=== PATIENT | female | born 1960 | race Caucasian/White ===

== ENCOUNTER 2021-08-02 07:33 | Day surgery (SDC) | payer OTHER, SELFPAY ==
[2021-07-24 15:09] VITALS: BMI 41.9
--- NOTE | 2021-08-01 11:55 | P.CONAN_ITS ---
Documented by User: Danielle Carvalho NP 08/01/21 11:55 HPI - Anesthesia Eval Consult details Narrative: 61yo F for Colonoscopy [facility] Past Medical History Medical History Arthritis Back pain Smoker Surgical History Surgical History (Updated 07/24/21 @ 15:09 by Stephenie Downey RN) History of total left knee replacement History of total right knee replacement Social History Social History Patient Tobacco Use Status: Current everyday Tobacco user Tobacco use type: Cigarette Cigarette Packs Per Day: 0.25 Cigarettes Per Day: 5.0 Smoked in Last 30 Days: Yes Patient Interested in Nicotine Replacement: Yes Second Hand Smoke Exposure: No Use of substances other than those prescribed or required for medical reasons: No Have you been hit, kicked, punched, or otherwise hurt by someone within the past year? If so, by whom?: No Are you DNR?: No Advance Directives: No Advance Directives Information Provided: No Advance Directives on File: No Recently lost weight without trying: No Nutrition Risks: No Nutritional Risk Patient : No Meds Allergies Allergy/AdvReac Type Severity Reaction Status Date / Time Sulfa (Sulfonamide Allergy Unknown Verified 08/01/21 10:32 Antibiotics) LOBSTER AdvReac Severe VOMITING/DI Uncoded 04/12/20 18:30 ARRHEA Home Medications Medication Instructions Recorded Confirmed Last Taken Type No Known Home Meds 07/24/21 07/24/21 Unknown History Exam Exam Date and Time: August 01, 2021 1155 Height,Weight and Vital Signs: Height 5 ft 6 in Weight 117.934 kg Assessment and Plan Assessment Anesthesia Assessment: Chart Reviewed Documented by User: Ministerio Lopez MD 08/02/21 08:40 [facility] Past Medical History Medical History Arthritis Back pain Smoker Family History Family history of problems with anesthesia: No Surgical History Surgical History (Updated 07/24/21 @ 15:09 by Stephenie Downey RN) History of total left knee replacement History of total right knee replacement History of Problems with Anesthesia: No Social History Social History Patient Tobacco Use Status: Current everyday Tobacco user Tobacco use type: Cigarette Cigarette Packs Per Day: 0.25 Cigarettes Per Day: 5.0 Smoked in Last 30 Days: Yes Patient Interested in Nicotine Replacement: Yes Second Hand Smoke Exposure: No Use of substances other than those prescribed or required for medical reasons: No Have you been hit, kicked, punched, or otherwise hurt by someone within the past year? If so, by whom?: No Are you DNR?: No Advance Directives: No Advance Directives Information Provided: No Advance Directives on File: No Recently lost weight without trying: No Nutrition Risks: No Nutritional Risk Patient : No Meds Allergies Allergy/AdvReac Type Severity Reaction Status Date / Time Sulfa (Sulfonamide Allergy Unknown Verified 08/01/21 10:32 Antibiotics) LOBSTER AdvReac Severe VOMITING/DI Uncoded 04/12/20 18:30 ARRHEA Home Medications Medication Instructions Recorded Confirmed Last Taken Type No Known Home Meds 07/24/21 07/24/21 Unknown History Exam Airway Mallampati Class: II TM Dist: >3cm Neck ROM: Full Loose/Missing/Broken Teeth: No Heart: rrr+s1s2 Lungs: cta b/l Assessment and Plan Assessment Anesthesia Assessment: Anesthesia Plan Discussed Final Anesthetic Review Family History of Problems with Anesthesia: No History of Problems with Anesthesia: No NPO: Yes ASA Class: III Final Preanesthetic Review: No Changes in Pt Med Stat, Meds/Allgs Chart Reviewed, Consent Obtained/Reviewed and Anes Risks/Benef Reviewed Patient Risk: Intermediate Procedure Risk: Low Assessment/Block/Sedation in SS: Assess/Block/Sedation-SS Anesthetic Plan Anesthetic Plan: MAC: and Agree w/ Assess. and Plan Disposition: Standard PACU
[2021-08-02 07:56] VITALS: BP 146/91; PULSE 102; RESP 18; TEMP 36.8; O2SAT 97; BMI 41.9
[2021-08-02] MEDS: Lactated Ringers 1,000 ML 100 ML IVCONT (08:18)
[2021-08-02 09:56] VITALS: BP 113/63; PULSE 77; RESP 16; TEMP 36.6; O2SAT 97
--- NOTE | 2021-08-02 09:59 | P.BOP_ITS ---
Brief Operative Note Date of Service: 08/02/21 Pre-op diagnosis: Screening Post-op diagnosis: other (Colon polyps) Procedure: Colonoscopy to the cecum and TI with hot snare polypectomy x 2 Surgeon: Amarjit Roa Anesthesia: MAC Was an Control Systems Drafting Officer used for this Procedure?: No Estimated blood loss (mL): 0 Pathology: other (A. Polyp at 50cm B. Polyp at 20cm) Condition: stable Disposition: PACU
[2021-08-02 10:11] VITALS: BP 145/88; PULSE 71; RESP 16; TEMP 36.6; O2SAT 97
--- NOTE | 2021-08-02 11:12 | OP_ITS ---
SURGEON: Amarjit Roa MD INDICATIONS: The patient presents for evaluation of colorectal cancer screening. Full consent has been obtained from her for this, including risks of bleeding and perforation. PREOPERATIVE DIAGNOSIS: Colorectal cancer screening. POSTOPERATIVE DIAGNOSIS: PROCEDURE PERFORMED: Colonoscopy to cecum and terminal ileum with hot snare polypectomy. ESTIMATED BLOOD LOSS: COMPLICATIONS: ANESTHESIA: Monitored anesthesia care. ASSISTANTS: SPECIMENS: POSTOPERATIVE DIAGNOSES: Colorectal cancer screening, colon polyps, diverticulosis, and internal hemorrhoids. DESCRIPTION OF PROCEDURE: The patient was placed in the left lateral decubitus position. The digital rectal exam revealed no abnormalities. The Olympus video pediatric colonoscope was entered into the rectum and advanced easily to the cecum. Once in the cecum, I did identify normal-appearing cecal pouch with appendiceal orifice and a normal-appearing ileocecal valve. The terminal ileum was cannulated and appeared normal. The scope was withdrawn back in the colon. The entire cecum and ileocecal valve appeared normal. The scope was slowly withdrawn assessing all mucosal surfaces carefully. Preparation was excellent. At 50 cm and at 20 cm were flat approximately 6 to 8 mm probable adenomatous polyps which were each removed with hot snare polypectomy and recovered by suction. The polypectomy sites appeared clean, without any sign of residual polyp nor bleeding. I did not visualize any other polyps, colitis, nor angiodysplasia. There was a mild amount of sigmoid diverticulosis. In the rectum, scope was retroflexed visualizing small internal hemorrhoids, but no other pathology. The rectal mucosa appeared normal. Scope was straightened and withdrawn from the patient. She tolerated the procedure well and was returned to the recovery area in stable condition. IMPRESSION: 1. Colon polyps, status post hot snare polypectomy. 2. Diverticulosis. 3. Internal hemorrhoids. PLAN: The results of the pathology will be checked. If these are tubular adenomas, I would recommend a followup colonoscopy in 5 years. She was advised not to use any aspirin or NSAIDs for 1 week. MD ALL Anderson/YAMILE / [id number] MTDBernarda
== END 2021-08-02 11:13 | disposition home or self-care (01) ==
PROVIDERS: Visit Provider Internal Medicine
PROC: 0DJD8ZZ Inspection of Lower Intestinal Tract, Via Natural or Artificial Opening Endoscopic (ICD-10-PCS; CPT 45378; principal; 2021-08-02 09:20)
DX: Z12.11 Encounter for screening for malignant neoplasm of colon (principal); D12.5 Benign neoplasm of sigmoid colon; K57.30 Diverticulosis of large intestine without perforation or abscess without bleeding; K64.8 Other hemorrhoids; F17.210 Nicotine dependence, cigarettes, uncomplicated; Z96.653 Presence of artificial knee joint, bilateral
CPT/HCPCS: 45385; 88305; J3010

== ENCOUNTER 2023-03-13 13:30 | Emergency (ER) | payer OTHER, SELFPAY ==
--- NOTE | 2023-03-13 13:40 | ED_ITS ---
HPI - General Adult General Chief complaint: General Medical Stated complaint: exposure to bats Time Seen by Provider: 03/13/23 14:42 Source: patient, RN notes reviewed and old records reviewed Mode of arrival: ambulatory History of Present Illness HPI narrative: 63-year-old female with no significant past medical history presenting to the ED complaining of bat exposure. Has found multiple bats in household over the past few days. Denies known bite. Tetanus up-to-date. Denies other complaints at present Related Data Home Medications Medication Instructions Recorded Confirmed No Known Home Meds 07/24/21 07/24/21 Allergies Allergy/AdvReac Type Severity Reaction Status Date / Time Sulfa (Sulfonamide Allergy Unknown Verified 03/13/23 13:41 Antibiotics) LOBSTER AdvReac Severe VOMITING/DI Uncoded 03/13/23 13:41 ARRHEA Review of Systems Review of Systems: Constitutional: No Fever, No Chills ENT/Mouth: No Ear Pain, No Nasal Congestion, No sore throat, No Rhinorrhea, No Swallowing Difficulty Cardiovascular: No Chest Pain, No SOB Respiratory: No Cough Gastrointestinal: No Nausea, No Vomiting, No Diarrhea, No Constipation, No Abdominal pain Musculoskeletal: No joint pain, No Myalgias, No Joint Swelling Skin: No Skin Lesions, No rash Neuro: No Weakness Yes all other systems are reviewed and are negative Constitutional: Constitutional: Reports as per [facility] Past Medical History Attestation statement: The following information was validated with the patient. Source: old records reviewed Medical History Arthritis Back pain Smoker Surgical History History of total left knee replacement History of total right knee replacement Social History Social History Patient Tobacco Use Status: Current everyday Tobacco user Tobacco use type: Cigarette Cigarette Packs Per Day: 0.25 Cigarettes Per Day: 5.0 Second Hand Smoke Exposure: No Physical Exam ED Vital Signs: Vital Signs - 24 hr 03/13/23 13:41 Temperature 98 F Pulse Rate 100 Respiratory Rate 19 Blood Pressure 153/98 H Pulse Oximetry 100 Oxygen Delivery Method Room Air BMI result Body Mass Index 41.3 Const General: cooperative, healthy appearing and no acute distress Orientation/consciousness: patient oriented x3 Limitations: no limitations HENMT Head: Yes normal to inspection and Yes atraumatic Ears: hearing grossly normal bilaterally General nose exam: Normal external nose present Face and sinus: Yes normal facial exam Eyes General: appearance normal, both eyes and all related structures EOM: EOMs intact bilaterally Neck Neck: Yes normal visual inspection and Yes no meningeal signs Resp Effort & Inspection: normal respiratory effort and no respiratory distress Cardio Rate: regular rate Skin Rashes: no rashes Wounds: no wounds Neuro General: patient oriented x3, tone normal and no meningeal signs Cranial nerves: Yes CN's II-XII intact bilaterally Gait exam (Neuro): Normal gait present Extrem General: Yes normal to inspection Course Course Course Narrative: RME performed by Sayda Mclaughlin PA-C. Patient is a 63 year old assigned female at presenting to the emergency department with bat exposure. Rabies ordered. Patient placed back in the waiting room pending room availability. Medications Administered Discontinued Medications Generic Name Dose Route Start Last Admin Trade Name Freq PRN Reason Stop Dose Admin Rabies Immune Globulin 2,320 unit 03/13/23 13:44 03/13/23 15:03 Rabies Immune Globulin/Pf 900 Unit/3 Ml Vial 20 unit/kg (2320 unit) 03/13/23 13:45 2,320 unit IM Administration ONCE ONE Rabies Vaccine Human Diploid Cell 1 ml 03/13/23 13:44 03/13/23 15:03 Rabies Vaccine, Human Diploid (Imovax) 1 Ml Vial IM 03/13/23 13:45 1 ml .ONCE ONE Administration Medical Decision Making Medical Decision Making MDM Narrative: 63-year-old female with no significant past medical history presenting to the ED complaining of bat exposure. On exam vital signs stable, NAD, nontoxic appearing, patient with known fat exposure will give rabies immune globulin and vaccine. Up-to-date on tetanus. Patient given information for short-stay velasco rgery follow-up Results discussed with patient including worrisome signs and symptoms and strict return precautions, and when to return to the emergency department. They verbalized understanding and feel safe for discharge at this time. Differential Diagnosis Differential Diagnoses: The differential diagnosis associated with the prese ntation includes As above External Record Review External record reviewed: Inpatient record, Office record, Outpatient record, Prior outpatient labs, Prior outpatient radiology, Primary care record and Outside ED record Tests considered The following testing was considered but not selected: As above Prescription Management I considered prescription management with: Antiviral and Antibiotic Discharge Plan Discharge Clinical Impression: Exposure to bat without known bite Patient Disposition: Home, Self-Care Instructions: Rabies (ED) Additional Instructions: Your given the rabies vaccine and immunoglobulin today You need to follow-up with short-stay surgery for the remaining doses of her vaccine on the , & 03/30 Follow-up on Thursday at 15:00 for your injection Please follow-up with her doctor Prescriptions: No Action No Known Home Meds Discharge Date/Time: 03/13/23 15:30
[2023-03-13 13:41] VITALS: BP 153/98; PULSE 100; RESP 19; TEMP 36.6; O2SAT 100; BMI 41.3
[2023-03-13] MEDS: Rabies Vaccine, Human Diploid (Imovax) 1 ML VIAL IM (15:03)
[2023-03-13] MEDS: Rabies Immune Globulin/PF 900 UNIT/3 ML VIAL 2320 UNIT IM (15:03)
== END 2023-03-13 15:30 | disposition home or self-care (01) ==
PROVIDERS: Emergency Provider Emergency Medicine Emergency Medical Services
DX: Z20.3 Contact with and (suspected) exposure to rabies (principal)
CPT/HCPCS: 90375; 90471; 90675; 96372; 99283; 99284

== ENCOUNTER 2023-03-16 14:53 | Outpatient (REF) | payer OTHER, SELFPAY | END 2023-03-16 14:54 | disposition home or self-care (01) | LOC: HO.MDS 14:53 | PROVIDERS: Visit Provider Physician Assistant | DX: Z20.3 Contact with and (suspected) exposure to rabies (principal) | CPT/HCPCS: 90471; 90675 ==

== ENCOUNTER 2024-12-23 09:39 | Outpatient (REF) | payer OTHER, SELFPAY ==
--- NOTE | ~2024-12-23 | XR_ITS ---
CLINICAL HISTORY: M25.511 - Pain in right shoulder 8 view bilateral shoulder Comparison: None Findings: Bones intact. No dislocations. No significant arthritic change. No erosions. No radiopaque foreign body. IMPRESSION: 1. No acute findings This document has been electronically signed by: Christiano Veloz MD on 12/24/2024 10:42:43
== END 2024-12-23 09:40 | disposition home or self-care (01) ==
LOC: HO.XRAY 09:39
PROVIDERS: Visit Provider Student in an Organized Health Care Education/Training Program
DX: M25.511 Pain in right shoulder (principal); M25.512 Pain in left shoulder
CPT/HCPCS: 73030

== ENCOUNTER 2024-12-23 09:39 | Outpatient (AMB) | payer OTHER, SELFPAY ==
--- OUTSIDE RECORDS SUMMARY | 2024-12-23 10:03 | XMS_ITS | Patient Health Record ---
Author Organization [facility] Address [address] [place] [address] Care Team Providers Care Plant Security Guard Name Role Phone Jenny Silva Primary Care Provider Amarjit Snow Unavailable [phone] Allergies Allergen (clinical drug ingredient) Drug/Non Drug Allergy documented on EMR Reaction Allergy Type Onset Date Status Substance with sulfonamide structure and antibacterial mechanism of action (substance) Sulfa Antibiotics Unknown Drug Allergy Active Reason For Referral No Information Immunizations Vaccine Route Administration Date Status Comme nts Influenza Unknown 04/26/2021 Administered Social History Tobacco Use: Social History Observation Description Date Details (start date - stop date) Current Smoker NA - NA Tobacco Use/Smoking Question Answer Notes Patient is a current smoker How often do you smoke cigarettes? every day How many cigarettes a day do you smoke? 6-10 Alcohol Screen Question Answer Notes Did you have a drink contain ing alcohol in the past year? Yes How often did you have a dri nk containing alcohol in the past year? 4 or more times a week (4 points) How many drinks did you have on a typical day when you were drinking in the past year? 3 or 4 drinks (1 point) How often did you have 6 or more drinks on one occasion in the past year? Never (0 point) Points 5 Interpretation Positive Section Notes: Smoker 4-6 cigs QD; drinks S cotch 2 drinks 4-5 times a day Problems Problem Type SNOMED Code ICD Code Onset Dates Problem Status W/U Status Risk Notes Problem 867326379 Encounter for screening for malignant neoplasm of colon (Z12.11) Active confirmed Problem [id number] Preprocedural examination (Z01.818) Active confirmed Problem Diverticulosis of colon (130212595) Diverticulosis of colon (K57.30) Active confirmed Plan Of Treatment Pending Test Test Name Order Date Pathology 08/02/2021 Future Test Test Name Order Date COLONOSCOPY 07/04/2021 Insurance Providers Payer Name Payer Address Payer Phone Subscriber Number Group Number Insured Name Patient Relationship to Insured Coverage Start Date Coverage End Date [facility] [address] [facility] [place] [phone] [id number] HOLLY BEAULIEU Self - patient is the insured Medical (General) History Medical History History ICD Code Denies LA,DM,CVA,Lung disease,renal dise ase Surgical History Surgery Date(Month/Year) 2 knee replacements 2014
--- NOTE | 2024-12-23 10:26 | A.OFFVIS_ITS ---
Vital Signs 12/23/24 10:44 Height 5 ft 6 in Weight 279 lb 1.683 oz BMI 45.0 BP 150/100 H Blood Pressure Location Rt brachial Position Sitting Pulse 99 Pulse Source Pulse Oximeter Pulse Oximetry (%) 97 Oxygen Delivery Method Room Air Intake Visit Reasons: Diffuse pain/urgent referral req approved Intake Note: Patient presents for diffuse pain. Patient stated she feels pain all over. The back of my neck, both shoulders, lower back, both wrist, both hands/fingers, both knees, both ankles and feet/toes. I been feeling pain for 10 years or more. Over the counter med are short term relieve. I take Cyclobenzaprine 10 mg as needed and it works. Allergies Sulfa (Sulfonamide Antibiotics) Allergy (Verified 12/23/24 10:37) Unknown LOBSTER Adverse Reaction (Severe, Uncoded 03/13/23 13:41) VOMITING/DIARRHEA Medication List - Last Reconciled 12/23/24 by Naomi Aguilera MD cyclobenzaprine 10 mg PO TID ergocalciferol (vitamin D2) (Vitamin D2) 1,250 mcg PO QWEEK HPI Comments Details: Patient is a 64-year-old female with hyperlipidemia, white coat hypertension, and bilateral knee OA s/p bilateral knee replacement in 2016 here today for evaluation of myalgias in the setting of significantly elevated CRP States that she was placed on a statin about 1.5 years ago, since starting the statin she started to experience excrutiating muscle pain, particularly in her shoulders and hips. The statin dose frequency was reduced to every 2 days then every 3 days which improved the pain but still present especially when she started taking the statin again. So the medication was discontinued. The muscle pains improved after about 2 months off the medication. In May/June she was being treated for a tooth infection and was placed on several courses of antibiotics including amoxicillin, ?cefalexin (patient states that medication started with a c) and finally augmentin before having to get a second root canal. During this time she started to notice return of her muscle pain. Denies overt muscle weakness but states that the muscle pain makes doing things more difficult. No changes in her vision. PFSH Medical History Arthritis Back pain Smoker Surgical History History of total left knee replacement History of total right knee replacement Family History (Updated 12/23/24 @ 10:42 by SADIQ Sanchez) Mother Stroke Hypertension Father History of heart attack Hypertension Maternal Aunt Thyroid disease Social History Household Members: Significant Other Housing: House Alcohol intake: current Alcohol intake frequency: a few times a week Comment: Often Patient Tobacco Use Status: Current everyday Tobacco user Tobacco use type: Cigarette Cigarette Packs Per Day: 0.25 Cigarettes Per Day: 5.0 Second Hand Smoke Exposure: No Review of Systems Const Details: Review of Systems Constitutional: Denies fever, chills, weight loss ENT: Denies vision changes, eye pain or eye redness, dental caries, dry mouth GI: Denies nausea, vomiting, diarrhea, abdominal pain, change in BM Pulm: Denies SOB, HELLER, hemoptysis, wheezing Cards: Denies chest pain, palpitations Skin: Denies Raynaud's, rash, nail changes, photosensitivity, LANDSCAPE ARCHITECT: Denies headaches, weakness, paresthesias, recurrent falls MSK: as per HPI All other systems reviewed and are unremarkable except noted above Physical Exam Vital Signs: Last Vital Signs Pulse 99 12/23/24 10:44 BP 150/100 H 12/23/24 10:44 Pulse Ox 97 12/23/24 10:44 Oxygen Delivery Method Room Air 12/23/24 10:44 BMI result Body Mass Index 45.0 Vital signs reviewed Physical Examination CONSTITUITIONAL Patient alert and cooperative. Well appearing and in no apparent painful distress. Obese HEENT Conjunctiva and sclera clear. ?Pupils equal round and reactive to light. ?No lymphadenopathy. ? CHEST/RESPIRATORY SYSTEM Normal respiratory effort and able to speak in complete sentences. ?Clear to auscultation bilaterally. ?No crackles, rales, rhonchi, wheezes heard. CARDIAC SYSTEM Regular rate and rhythm. ?S1 and S2 heard no murmurs. ?Radial pulses intact bilaterally MSK Hands: ?Able to make a fist. No synovitis noted to the MCPs, PIPs or DIPs. ?No tenderness to palpation of these joints. No deformities noted. ? Wrists: ?Full range of motion at the wrists without pain. ?No tenderness to palpation or synovitis noted to the wrists. Elbows: Full range of motion without pain. No tenderness, weakness, swelling, increased warmth or erythema. Shoulders: Full range of active range of motion without pain. No tenderness, weakness, swelling, increased warmth or erythema. Knees: ?Full range of motion. ?No tenderness, swelling, increased warmth or erythema.?No effusion or crepitations Ankles: Full range of motion. ?No tenderness, swelling, increased warmth or erythema.? Feet: ?Negative squeeze test. ?No tenderness to palpation or swelling of the MTPs. Tender points:?No tenderness to palpation of the bilateral trapezius, supraspinatus, greater trochanters, anterior costochondral junctions, bilateral gluteal areas, bilateral suboccipital muscle insertions Right Left Neck Shoulder abduction 4+ 4+ Shoulder adduction 5 5 Elbow flexion 5 5 Elbow extension 5 5 Land Surveying Party Chief strength 5 5 Hip flexion 5 5 Knee extension 5 5 Knee flexion 5 5 Ankle dorsiflexion 5 5 Ankle plantarflexion 5 5 SKIN Skin intact without rashes. Results Reviewed Results Reviewed: CRP 10 on records from PCP Assessment & Plan Assessment & Plan (1) Muscle pain: Code(s): M79.10 - Myalgia, unspecified site Plan: #Myalgias Patient is a 64-year-old female without significant past medical history who presents for evaluation of myalgias says it severely elevated CRP. History and exam is not consistent with any autoimmune pathology. Her history of having myalgias on statins and no return of myalgias after antibiotics is concerning for myopathies. We will check CK, aldolase and inflammatory markers. Re- evaluate in 2 weeks with blood work Plan - Check CRP, ESR, CK, Aldolase, CBC, CMP, MSA panel extended, T spot, Hepatitis panel - XR Bilateral shoudlers - RTC 2 weeks Plan I spent 45 minutes reviewing the record and labs, taking a history, examining the patient, discussing the treatment plan, ordering diagnostic work up and documenting in the medical record Orders: Orders C Reactive Protein Today M79.10 - Myalgia, unspecified site Creatine Kinase Total Today M79.10 - Myalgia, unspecified site Aldolase Today M79.10 - Myalgia, unspecified site Erythrocyte Sedimentation Rate Today M79.10 - Myalgia, unspecified site Hepatitis A,B,C Profile Today M79.10 - Myalgia, unspecified site T Spot TB Today M79.10 - Myalgia, unspecified site Complete Blood Count Auto Diff Today M79.10 - Myalgia, unspecified site Comprehensive Met. Panel Today M79.10 - Myalgia, unspecified site MSA Panel Extended Today M79.10 - Myalgia, unspecified site XR shoulder RT min 2V Today M25.511 - Pain in right shoulder, M25.512 - Pain in left shoulder Coding Level of Care Code New Pt Level 4 (59777) Diagnoses Muscle pain M79.10
[2024-12-23 10:44] VITALS: BP 150/100; PULSE 99; O2SAT 97; BMI 45.0
== END 2024-12-23 11:20 | disposition home or self-care (01) ==
LOC: HO.RHE 09:40
PROVIDERS: Visit Provider Student in an Organized Health Care Education/Training Program
DX: M79.10 Myalgia, unspecified site (principal)
CPT/HCPCS: 99204

== ENCOUNTER 2024-12-23 11:28 | Outpatient (REF) | payer OTHER, SELFPAY ==
[2024-12-23 13:17] LABS: MANUAL DIFF FLAG NO
[2024-12-23 13:25] LABS: Basophils Absolute Auto 0.1 X10*3/uL (0.0-0.2); Basophils Percent Auto 0.6 % (0-2); Eosinophils Absolute Auto 0.1 X10*3/uL (0.0-0.4); Hematocrit 46.6 % (37.0-47.0); Imm Gran Abs Auto 0.03 X10*3/uL (0.00-0.03); Imm Gran Pct Auto 0.3 % (0.0-0.4); Lymphocytes Absolute Auto 2.8 X10*3/uL (1.2-4.9); Lymphocytes Percent Auto 26.1 % (20-40); Mean Corpuscular HGB Conc 32.2 g/dl (31.0-35.0); Mean Corpuscular Hemoglobin 28.4 pg (27.0-33.0); Mean Corpuscular Volume 88.3 fL (80.0-98.0); Mean Platelet Volume 11.3 fL (9.4-12.3); Monocytes Absolute Auto 0.7 X10*3/uL (0.1-1.2); Monocytes Percent Auto 6.9 % (2-11); Neutrophils Absolute Auto 6.9 x10*3/uL (2.0-8.3); Neutrophils Percent Auto 65.1 % (45-73); Platelet Count 372 X10*3/uL (160-400); Red Blood Count 5.28 X10*6/uL (4.20-5.50); Red Cell Distribution Width 14.6 % (11.0-16.0); White Blood Count 10.6 X10*3/uL (4.8-10.8)
[2024-12-23 14:01] LABS: Erythrocyte Sedimentation Rate 27 MM/HR (0-20)
[2024-12-23 14:04] LABS: Alanine Aminotransferase 21 U/L (0-31); Albumin Level 3.9 g/dL (3.5-5.0); Alkaline Phosphatase 117 U/L (39-117); Anion Gap 14 (12-20); Aspartate Amino Transferase 26 U/L (5-31); Bilirubin Total 0.4 mg/dL (0.0-1.0); Blood Urea Nitrogen 13 mg/dL (9-16); Calcium 8.9 mg/dL (8.4-10.2); Carbon Dioxide 23 mmol/L (22-29); Chloride 108 mmol/L (96-108); Estimated Glomerular Filt Rate > 60; Glucose Random 87 mg/dL (60-115); Sodium 141 mmol/L (135-145); Total Protein 7.9 g/dL (6.5-8.0)
[2024-12-25 03:31] LABS: HBc Num1 0.21 S/CO (0.00-0.79); HBsAGNum1 0.32 S/CO (0.00-0.99); Hepatitis A Antibody IgM 0.17 Index (0-0.79); Hepatitis B Core Antibody Nonreactive (Nonreactive); Hepatitis B Surface Antigen Negative (Negative); ~HepC Num1 0.17 S/CO (0.00-0.79); ~Hepatitis A Antibody IgM Nonreactive (Nonreactive); ~Hepatitis B Surface Antibody NONREACTIVE (Nonreactive); ~Hepatitis C Antibody Nonreactive (Nonreactive)
[2024-12-26 12:34] LABS: TS Negative Control Passed; TS Panel A 0; TS Panel B 0; TS Positive Control Passed; TSpotTB Negative (Negative)
[2024-12-28 06:24] LABS: Aldolase 5.7 U/L (<=8.1)
[2025-01-03 15:53] LABS: Ej Ab <11 SI (<11); Jo-1 Ab <11 SI (<11); MDA5 Ab <11 SI (<11); Mi-2 alpha Ab <11 SI (<11); Mi-2 beta Ab <11 SI (<11); NXP-2 (MJ) Ab <11 SI (<11); Oj Ab <11 SI (<11); Pl-12 Ab <11 SI (<11); Pl-7 Ab <11 SI (<11); SRP Ab <11 SI (<11); TIF1 gamma Ab <11 SI (<11)
== END 2024-12-23 11:29 | disposition home or self-care (01) ==
LOC: HO.10HDL 11:28
PROVIDERS: Visit Provider Student in an Organized Health Care Education/Training Program
DX: M79.10 Myalgia, unspecified site (principal)
CPT/HCPCS: 36415; 80053; 82085; 82550; 83516; 83520; 84182; 85025; 85652; 86140; 86235; 86481; 86704; 86706; 86709; 86803; 87340

== ENCOUNTER → 2024-12-23 11:55 | Outpatient (BNV) | payer OTHER, SELFPAY | PROVIDERS: Visit Provider Specialist | DX: M25.511 Pain in right shoulder (principal) | CPT/HCPCS: 73030 ==

== ENCOUNTER → 2025-01-04 07:39 | Outpatient (BNVA) | payer OTHER, SELFPAY | PROVIDERS: Visit Provider Student in an Organized Health Care Education/Training Program | DX: M79.10 Myalgia, unspecified site (principal); M25.511 Pain in right shoulder; M25.512 Pain in left shoulder ==

== ENCOUNTER 2025-01-20 10:11 | Outpatient (AMB) | payer OTHER, SELFPAY ==
--- NOTE | 2025-01-20 10:14 | MHC.OFFVIS ---
Vital Signs 01/20/25 10:23 Height 5 ft 6 in Weight 275 lb 2.19 oz BMI 44.4 BP 160/104 H Blood Pressure Location Rt brachial Position Sitting Pulse 110 H Pulse Source Pulse Oximeter Pulse Oximetry (%) 98 Oxygen Delivery Method Room Air Intake Visit Reasons: diffuse pain/ MD req 2week f/u Intake Note: Patient presents for diffuse pain follow up. Allergies Sulfa (Sulfonamide Antibiotics) Allergy (Verified 01/20/25 10:22) Unknown LOBSTER Adverse Reaction (Severe, Uncoded 03/13/23 13:41) VOMITING/DIARRHEA Medication List - Last Reconciled 01/20/25 by Naomi Aguilera MD cyclobenzaprine 10 mg PO TID ergocalciferol (vitamin D2) (Vitamin D2) 1,250 mcg PO QWEEK HPI Comments Details: Patient is a 64-year-old female with hyperlipidemia, white coat hypertension, and bilateral knee OA s/p bilateral knee replacement in 2016 here today for evaluation of myalgias in the setting of significantly elevated CRP Interval History: Patient last seen 12/23/24 with me. Visit summary: - establishing care for myalgias in the setting of elevated CRP Today - no change - main areas of pain are shoulders and lower legs - Does not want to drive to [place] Rheumatologic History: Initial History: Patient is a 64-year-old female with hyperlipidemia, white coat hypertension, and bilateral knee OA s/p bilateral knee replacement in 2016 here today for evaluation of myalgias in the setting of significantly elevated CRP States that she was placed on a statin about 1.5 years ago, since starting the statin she started to experience excrutiating muscle pain, particularly in her shoulders and hips. The statin dose frequency was reduced to every 2 days then every 3 days which improved the pain but still present especially when she started taking the statin again. So the medication was discontinued. The muscle pains improved after about 2 months off the medication. In May/June she was being treated for a tooth infection and was placed on several courses of antibiotics including amoxicillin, ?cefalexin (patient states that medication started with a c) and finally augmentin before having to get a second root canal. During this time she started to notice return of her muscle pain. Denies overt muscle weakness but states that the muscle pain makes doing things more difficult. No changes in her vision. Current Rheumatology Medication(s): [facility] Medical History Arthritis Back pain Smoker Surgical History History of total left knee replacement History of total right knee replacement Family History Mother Stroke Hypertension Father History of heart attack Hypertension Maternal Aunt Thyroid disease Social History Household Members: Significant Other Housing: House Alcohol intake: current Alcohol intake frequency: a few times a week Comment: Often Patient Tobacco Use Status: Current everyday Tobacco user Tobacco use type: Cigarette Cigarette Packs Per Day: 0.25 Cigarettes Per Day: 5.0 Second Hand Smoke Exposure: No Review of Systems Const Details: Review of Systems Constitutional: Denies fever, chills, weight loss ENT: Denies vision changes, eye pain or eye redness, dental caries, dry mouth GI: Denies nausea, vomiting, diarrhea, abdominal pain, change in BM Pulm: Denies SOB, HELLER, hemoptysis, wheezing Cards: Denies chest pain, palpitations Skin: Denies Raynaud's, rash, nail changes, photosensitivity, CASTER OPERATOR: Denies headaches, weakness, paresthesias, recurrent falls MSK: as per HPI All other systems reviewed and are unremarkable except noted above Physical Exam Vital Signs: Last Vital Signs Pulse 110 H 01/20/25 10:23 BP 160/104 H 01/20/25 10:23 Pulse Ox 98 01/20/25 10:23 Oxygen Delivery Method Room Air 01/20/25 10:23 BMI result Body Mass Index 44.4 Vital signs reviewed Physical Examination CONSTITUITIONAL Patient alert and cooperative. Well appearing and in no apparent painful distress. Obese HEENT Conjunctiva and sclera clear. ?Pupils equal round and reactive to light. ?No lymphadenopathy. ? CHEST/RESPIRATORY SYSTEM Normal respiratory effort and able to speak in complete sentences. ?Clear to auscultation bilaterally. ?No crackles, rales, rhonchi, wheezes heard. CARDIAC SYSTEM Regular rate and rhythm. ?S1 and S2 heard no murmurs. ?Radial pulses intact bilaterally MSK Hands: ?Able to make a fist. No synovitis noted to the MCPs, PIPs or DIPs. ?No tenderness to palpation of these joints. No deformities noted. ? Wrists: ?Full range of motion at the wrists without pain. ?No tenderness to palpation or synovitis noted to the wrists. Elbows: Full range of motion without pain. No tenderness, weakness, swelling, increased warmth or erythema. Shoulders: Full range of active range of motion without pain. No tenderness, weakness, swelling, increased warmth or erythema. Knees: ?Full range of motion. ?No tenderness, swelling, increased warmth or erythema.?No effusion or crepitations Ankles: Full range of motion. ?No tenderness, swelling, increased warmth or erythema.? Feet: ?Negative squeeze test. ?No tenderness to palpation or swelling of the MTPs. Tender points:?Tenderness to palpation of the bilateral trapezius, supraspinatus, greater trochanters, anterior costochondral junctions, bilateral gluteal areas, bilateral suboccipital muscle insertions Right Left Neck Shoulder abduction 4+ 4+ Shoulder adduction 5 5 Elbow flexion 5 5 Elbow extension 5 5 Pole Setter strength 5 5 Hip flexion 5 5 Knee extension 5 5 Knee flexion 5 5 Ankle dorsiflexion 5 5 Ankle plantarflexion 5 5 SKIN Skin intact without rashes. Results Reviewed Results Reviewed: Laboratory Tests 12/23/24 11:30 WBC 10.6 RBC 5.28 Hgb 15.0 Hct 46.6 Plt Count 372 ESR 27 H Sodium 141 Potassium 4.0 Chloride 108 Carbon Dioxide 23 BUN 13 Creatinine 0.78 Calcium 8.9 Total Bilirubin 0.4 AST 26 ALT 21 Alkaline Phosphatase 117 Total Creatine Kinase 47 C-Reactive Protein 1.70 H Total Protein 7.9 Albumin 3.9 Aldolase 5.7 Infectious serologies 12/23/24 11:30 Hepatitis A IgM Ab Nonreactive Hep Bs Antigen Negative Hep Bs Antibody NONREACTIVE Hep B Core Total Ab Nonreactive Hepatitis C Ab (EIA) Nonreactive TB Test (T-Spot) Com Negative Extended myositis panel 12/23/24 11:30 YARA-1 Antibody <11 EJ Antibody <11 OJ Antibody <11 Mi-2-Alpha Ab <11 Mi-2-Beta Ab <11 NXP-2 Ab <11 PL-7 Antibody <11 PL-12 Antibody <11 SRP Ab <11 MDA5 Ab <11 Myos P155/140 TIF1-g Ab <11 HMGCR IgG Antibody TNP NT5C1A IgG Antibody TNP XR Bilateral shoulders 11/2024 Findings: Bones intact. No dislocations. No significant arthritic change. No erosions. No radiopaque foreign body. IMPRESSION: 1. No acute findings Assessment & Plan Assessment & Plan (1) Muscle pain: Code(s): M79.10 - Myalgia, unspecified site Plan: #Myalgias Patient is a 64-year-old female without significant past medical history who presents for evaluation of myalgias in the setting of severely elevated CRP. History and exam is not consistent with any autoimmune pathology. Her history of having myalgias on statins and no return of myalgias after antibiotics is concerning for myopathies but CK and aldolase normal. Myositis panel normal as well. She does have some fibromyalgia tender points on exam. Will check HMGCR Ab, RF and CCP. If negative patient likely with fibromyalgia Patient does not want to drive to [place] and we will go back to her primary and ask for a referral to a environmental services floor tech in the [facility]. Plan - Check HMGCR ab, RF and CCP - Contact patient with results Plan I spent 30 minutes reviewing the record and labs, taking a history, examining the patient, discussing the treatment plan, ordering diagnostic work up and documenting in the medical record Orders: Orders HMGCR IgG Today M79.10 - Myalgia, unspecified site Cyclic Citrullinated Peptide Today M79.10 - Myalgia, unspecified site Other Ref Test - Misc Today M79.10 - Myalgia, unspecified site Rheumatoid Factor Today M79.10 - Myalgia, unspecified site Coding Level of Care Code Est Pt Level 4 (36256) Diagnoses Muscle pain M79.10
[2025-01-20 10:23] VITALS: BP 160/104; PULSE 110; O2SAT 98; BMI 44.4
--- OUTSIDE RECORDS SUMMARY | 2025-01-20 10:51 | XMS_ITS | Patient Health Record ---
Author Organization [facility] Address [address] [place] [address] Care Team Providers Care Apartment Assistant Manager Name Role Phone Jenny Silva Primary Care Provider Amarjit Snow Unavailable [phone] Allergies Allergen (clinical drug ingredient) Drug/Non Drug [...] Problem Status W/U Status Risk Notes Problem [id number] Encounter for screening for malignant neoplasm of colon (Z12.11) Active confirmed Problem [id number] Preprocedural examination (Z01.818) Active confirmed Problem Diverticulosis of colon (326254812) Diverticulosis of colon (K57.30) Active confirmed Plan Of Treatment Pending Test Test Name Order Date Pathology 08/02/2021 Future Test Test Name Order Date COLONOSCOPY 07/04/2021 Insurance Providers Payer Name Payer Address Payer Phone Subscriber Number Group Number Insured Name Patient Relationship to Insured Coverage Start Date Coverage End Date [facility] [address] [employer] [facility] [place] [phone] [id number] HOLLY BEAULIEU Self - patient is the insured Medical (General) History Medical History History ICD Code Denies LA,DM,CVA,Lung disease,renal dise ase Surgical History Surgery Date(Month/Year) 2 knee replacements 2014
== END 2025-01-20 11:01 | disposition home or self-care (01) ==
LOC: HO.RHE 10:12
PROVIDERS: PCP Nurse Practitioner Adult Health; Visit Provider Student in an Organized Health Care Education/Training Program
DX: M79.10 Myalgia, unspecified site (principal)
CPT/HCPCS: 99214

== ENCOUNTER 2025-01-20 11:03 | Outpatient (REF) | payer OTHER, SELFPAY ==
[2025-01-20 13:53] LABS: Rheumatoid Factor 15.3 IU/mL (<15.0)
[2025-01-24 14:47] LABS: HMGCR IgG <2 CU (<20)
[2025-01-26 14:03] LABS: Cyclic Citrullinated Peptide <16 UNITS
== END 2025-01-20 11:04 | disposition home or self-care (01) ==
LOC: HO.10HDL 11:03
PROVIDERS: Visit Provider Student in an Organized Health Care Education/Training Program
DX: M79.10 Myalgia, unspecified site (principal)
CPT/HCPCS: 83516; 83520; 86200; 86431

== ENCOUNTER 2025-07-20 15:29 | Inpatient (IN) | payer OTHER, SELFPAY ==
--- NOTE | 2025-07-20 | ECG_ITS ---
Test Reason : dizziness Blood Pressure : */* mmHG Vent. Rate : 87 BPM Atrial Rate : 87 BPM P-R Int : 142 ms QRS Dur : 78 ms QT Int : 396 ms P-R-T Axes : 44 9 42 degrees QTcB Int : 476 ms Normal sinus rhythm Normal ECG No previous ECGs available Referred By: Generic ED Physician Electronically Signed By: MCKENZIE GERBER MD
--- NOTE | ~2025-07-20 | CT_ITS ---
CLINICAL HISTORY: non focal encephalopathy CT head without contrast Comparison: None provided Findings: No intra-axial mass, midline shift, hydrocephalus, or acute hemorrhage. No significant atrophy-like change or white matter disease. There is no sinus or mastoid fluid. The orbits are within normal limits. There is no acute fracture. IMPRESSION: 1. No acute intracranial findings. This document has been electronically signed by: Myron Moncada MD on 07/20/2025 19:27:34
--- NOTE | ~2025-07-20 | CT_ITS ---
EXAMINATION: CT ANGIOGRAM NECK CLINICAL INFORMATION: Persistent headache and left-sided weakness. COMPARISON: CT brain 07/20/2025. TECHNIQUE: The degree of stenosis determined by NASCET criteria. This CT examination was performed using dose optimization techniques as appropriate, variously including the following: *Automated exposure control *Adjustment of mA and/or kV according to patient size (this includes techniques or standardized protocols for targeted exams where dose is matched to indication/reason for exam; i.e. extremities or head) *Use of iterative reconstruction technique FINDINGS: On noncontrast exam there is no acute intra-axial, extra-axial bleed, masses or midline shift. No acute infarction evolution. There is punctate central and pontine calcification on axial image 14/7. The lateral ventricles are symmetrical in size and configuration without enlargement. The martines to white matter differentiation is maintained normal. Bone windows reveal no calvarial abnormality. There is a small polyp or retention cyst left maxillary sinus. Rest of the paranasal sinuses and mastoid air cells are well-aerated. Postcontrast there is no abnormal enhancing lesion or abnormal vascularity. Mild paucity of vasculature seen in bilateral posterior fossa circulation is unremarkable. Vascular: The thoracic aorta is normal caliber. There is good opacification of thoracic arch and three-vessel branches of the aortic arch. The origins of bilateral carotid arteries are normal. Both common carotid arteries are widely patent extending to the bulb. There is normal bifurcation into internal and extra carotid artery minimal bilateral hard plaque at the bulb. There is medial deviation of proximal mid internal carotid artery stenosis center but widely patent throughout their entire course of the neck extending to the skull base. Both vertebral arteries are patent at the origin and throughout the neck. They are codominant extending to the skull base. The petrous, cavernous and supraclinoid ICA segments of both internal carotid arteries are widely patent the bifurcate normally into anterior middle cerebral artery with a small patent anterior communicating artery. There is irregularity seen in bilateral middle cerebral arteries which are slightly smaller in caliber likely secondary to atherosclerosis. There is no atherosclerotic narrowing or thrombus seen. Both middle cerebral arteries bifurcate into anterior middle temporal branches. There is paucity of flow in bilateral cerebral hemispheres likely secondary to atherosclerosis. Both vertebral arteries merge to form a widely patent but small caliber basilar artery. The venous sinuses are patent intracranially. Both internal jugular veins are codominant but not completely opacified.. Visualized bilateral parotid, submandibular glands and thyroid lobes are symmetrical. The entire nasopharyngeal and laryngeal airway is widely patent. There are dental and mild artifact limiting evaluation of anterior oral cavity no focal or discrete mass or abnormal sized lymphadenopathy seen. The lung apices are clear. There is mild straightening of cervical lordosis. Degenerative disc changes from C3-4 through C7-T1 disc levels and mild posterior spondylosis. CT/CT angio head neck IMPRESSION: Small caliber bilateral internal carotid and basilar artery. No thrombus or atherosclerotic narrowing seen. Bilateral common carotid, bulb and internal carotid arteries and neck are widely patent. Small bilateral codominant vertebral arteries are patent at their origin and throughout the neck. Paucity of vascularity in both cerebral hemispheres likely secondary to a atherosclerosis. No large vessel thrombosis, stenosis or aneurysm seen. Electronically signed by: Jason Zepeda MD 07/21/2025 11:50 AM [facility]
--- NOTE | ~2025-07-20 | MR_ITS ---
EXAMINATION: MR BRAIN WITHOUT CONTRAST. MR VENOGRAPHY. CLINICAL INFORMATION: Evaluate for venous thrombosis. Headache COMPARISON: None available. TECHNIQUE: MRI of the brain was obtained using routine sequences without contrast. . Routine MRV 2-D without and postcontrast 3-D sequences were performed following IV 10 mL of Gadavist. FINDINGS: Brain: There are several foci of restricted diffusion in the right parietal lobe deep white matter and overlying cortical gyri with corresponding ADC abnormality consistent with acute infarct. There is no susceptibility artifact on gradient echo sequences suspect acute or chronic hemorrhage. The lateral ventricles are symmetrical in size and configuration without enlargement. There is normal flow-void signal seen in major cerebral vasculature. No T2 FLAIR abnormality seen in size and infarction. Bilateral paranasal sinuses and mastoid air cells are well-aerated there is small polyp or retention cyst left maxillary sinus. Optic nerve, optic globe and periorbital soft tissues are normal. Is normal symmetry of 7/8 nerve complex bilaterally. Calvarial bone marrow signal and the scalp soft tissues are normal. MRV brain the superior sagittal sinus, bilateral internal cerebral veins, straight sinus, bilateral transverse, sigmoid sinuses are widely patent. Bilateral superficial cerebral cortical veins are patent as well. Both internal jugular veins are codominant and patent. The left cerebral vein of Xochitl is dominant and patent. 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 Unremarkable MRV of the brain without and with contrast. Electronically signed by: Jason Zepeda MD 07/24/2025 07:36 AM [facility]
--- NOTE | ~2025-07-20 | MR_ITS ---
EXAMINATION: MR BRAIN WITHOUT CONTRAST. MR VENOGRAPHY. CLINICAL INFORMATION: Evaluate for venous thrombosis. Headache COMPARISON: None available. TECHNIQUE: MRI of the brain was obtained using routine sequences without contrast. . Routine MRV 2-D without and postcontrast 3-D sequences were performed following IV 10 mL of Gadavist. FINDINGS: Brain: There are several foci of restricted diffusion in the right parietal lobe deep white matter and overlying cortical gyri with corresponding ADC abnormality consistent with acute infarct. There is no susceptibility artifact on gradient echo sequences suspect acute or chronic hemorrhage. The lateral ventricles are symmetrical in size and configuration without enlargement. There is normal flow-void signal seen in major cerebral vasculature. No T2 FLAIR abnormality seen in size and infarction. Bilateral paranasal sinuses and mastoid air cells are well-aerated there is small polyp or retention cyst left maxillary sinus. Optic nerve, optic globe and periorbital soft tissues are normal. Is normal symmetry of 7/8 nerve complex bilaterally. Calvarial bone marrow signal and the scalp soft tissues are normal. MRV brain the superior sagittal sinus, bilateral internal cerebral veins, straight sinus, bilateral transverse, sigmoid sinuses are widely patent. Bilateral superficial cerebral cortical veins are patent as well. Both internal jugular veins are codominant and patent. The left cerebral vein of Xochitl is dominant and patent. 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 Unremarkable MRV of the brain without and with contrast. Electronically signed by: Jason Zepeda MD 07/24/2025 07:36 AM [facility]
[2025-07-20 15:35] VITALS: BP 115/60; BP 119/97; PULSE 100; RESP 20; TEMP 36.8; O2SAT 100; BMI 44.4
--- OUTSIDE RECORDS SUMMARY | 2025-07-20 16:06 | XMS_ITS | Encounter Summary ---
Author Organization [facility] Address [address] [place] [address] Phone Care Team Providers Care City Designer Name Role Phone Jenny Silva CNP Primary Care Provider [phone] Clarissa French MD Unavailable Tasha Coats CONSULTANT NURSE Unavailable [phone] Lui Olivier OD Unavailable Amarjit Roa MD Unavailable [phone] Encounter Details Date Type Department Care Team (Late st Contact Info) Description 06/12/2025 Telephone [facility] [address] [place] [address] Jenny Silva CNP [address] [facility] [place] [address] [email or web address] Social History Tobacco Use Types Packs/Day Years Used Date Smoking Tobacco: Every Day Cigarettes 0.1 50 Started: 1973 Smokeless Tobacco: Never Comments:1/2 pack/week (2024 ) Alcohol Use Standard Drinks/Week Comments Yes 14 (1 standard drink = 0.6 oz pu re alcohol) Previously drank more (2024) Child or Family Care Answer Date Record ed Do you have problems with on e of the following making it difficult for you to work, study, or receive health care? No 05/16/2025 Education Answer Date Recorded Are you interested in help w ith more adult education (for example, completing high school, GED, job training, learning the [place] language, technical skills, or developing parenting skills)? No 05/16/2025 Are you concerned about learning? Not on file 05/16/2025 No 05/16/2025 Yes 05/16/2025 Food Answer Date Recorded Within the past 6 months we worried whether our food would run out before we got money to buy more. Never True 05/16/2025 Within the past 6 months the food we bought just didn't last and we didn't have enough money to get more. Never True Residential Stability Answer Date Recor ded What is your housing situation today? I have ap sing 05/16/2025 How many times have you move d in the past 12 months? Zero (I did not move) 05/16/2025 Paying for Meds Answer Date Recorded Do you have trouble paying for medicines? No 05/16/2025 Paying Utility Bills Answer Date Record ed Do you have trouble paying your heating or elect ricity bill? No 05/16/2025 Transportation Answer Date Recorded Has the lack of transportati on kept you from medical appointments or from getting medications? No 05/16/2025 Unemployment Answer Date Recorded Are you currently unemployed or working on a part-time or temporary basis, and looking for work? No 03/31/2022 Digital Access Answer Date Recorded No 05/16/2025 Yes 05/16/2025 Do you have reliable internet access at home? Ye s 05/16/2025 Do you have a device (e.g., phone, tablet, computer) with a working camera? Yes 05/16/2025 Intimate Partner Violence Answer Date R ecorded Denied Basic Needs Not on file 05/16/2025 In the past 12 months have y ou been in a relationship with a person who hurts, threatens, or tries to control you? No 05/16/2025 Worried food would run out Not on file 05/16 In the past 12 months have y ou been in a relationship with a person who hurts, threatens, or tries to control you? 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 Pt stated that she is unhappy with the care she has been receiving. Please contact and advise. Central Support Green Jobs Trainer (Please do not reply to this user; this inbox is not monitored.) Thank you. documented in this encounter Plan of Treatment Upcoming Encounters Date Type Department Care Team (Late st Contact Info) Description 05/25/2026 2:30 PM EDT Office Visit [facility] [address] [place] [address] Jenny Silva CNP [address] [place] [address], [address] [place] [phone] documented as of this encounter Visit Diagnoses Not on filedocumented in this encounter Additional Health Concerns Assessment Noted Time PHQ-2 Depression Total Score: 0 05/16/20 25 12:18 PM EDT documented as of this encounter Care Teams City Designer Relationship Specialty Start Date End Date Jenny Silva CNP [address] [place] [address], [address] [place] [address] PCP - General Family Medicine 01/23/21 Clarissa French MD [address] [place] [address], [address] [place] [id number] Insurance Assigned Provider Family Medicine 01/23/21 Tasha Coats NP [address] [facility] [address] [place] [address] Family Medicine 04/01/22 Lui Olivier OD 40 [facility] [address] [place] [address] Optometry 04/29/23 Amarjit Roa MD [address] [place] [address] Drive [address] [place] [address] Gastroenterology 04/29/23 documented as of this encounter Additional Source Comments The information contained in this document represents components of the legal health record. It is not the complete legal health record.[facility]
--- OUTSIDE RECORDS SUMMARY | 2025-07-20 16:06 | XMS_ITS | Encounter Summary ---
Author Organization [facility] Address [address] [place] [address] [place] [address] Phone Care Team Providers Care Budget Engineer Name Role Phone Jenny Silva CNP Primary Care Provider [phone] Clarissa French MD Unavailable [phone] Lesa Roche MD Unavailable Bryan Lind OD Unavailable Tasha Coats [employer] Unavailable [phone] Lui Olivier OD Unavailable [phone] Amarjit Roa MD Unavailable [phone] Encounter Details Date Type Department Care Team (Late st Contact Info) Description 01/23/2021 Procedure Pass [facility], [address] [address] Social History Tobacco Use Types Packs/Day Years Used Date Smoking Tobacco: Every Day Cigarettes 0.2 50 Started: 1973 Smokeless Tobacco: Never Alcohol Use Standard Drinks/Week Comments Yes 14 (1 standard drink = 0.6 oz pure alcohol) Has reduced since early 2020 (2020) Child or Family Care Answer Date Record ed Do you have problems with on e of the following making it difficult for you to work, study, or receive health care? No 01/20/2021 Education Answer Date Recorded Are you interested in help w ith more adult education (for example, completing high school, GED, job training, learning the [place]vorian language, technical skills, or developing parenting skills)? No 01/20/2021 Are you concerned about learning? Not on file 01/20/2021 Food Answer Date Recorded Within the past 6 months we worried whether our food would run out before we got money to buy more. Never True 01/20/2021 Within the past 6 months the food we bought just didn't last and we didn't have enough money to get more. Never True Paying for Meds Answer Date Recorded Do you have trouble paying for medicines? No 01/20/2021 Paying Utility Bills Answer Date Record ed Do you have trouble paying your heating or elect ricity bill? No 01/20/2021 Transportation Answer Date Recorded Has the lack of transportati on kept you from medical appointments or from getting medications? No 01/20/2021 Comments No Sex and Gender Information Value Date Recorded Sex Assigned at Female 01/20/2021 10:26 AM EDT Legal Sex Female 9:45 PM EDT Gender Identity Female 01/20/2021 10:26 AM EDT Sexual Orientation Straight 01/20/2021 10 :26 AM EDT Occupation Industry Job Start Date Job End Date [employer] Not on file Not on file Not on file documented as of this encounter Plan of Treatment Upcoming Encounters Date Type Department Care Team (Late st Contact Info) Description 05/25/2026 2:30 PM EDT Office Visit [facility] [address] [place] [address] Jenny Silva CNP [address] [place] [address], [address] [place] [address] [email or web address] documented as of this encounter Visit Diagnoses Not on filedocumented in this encounter Additional Health Concerns Assessment Noted Time PHQ-2 Depression Total Score: 0 01/21/20 21 10:36 AM EDT documented as of this encounter Care Teams Budget Engineer Relationship Specialty Start Date End Date Jenny Silva CNP [address] [place] [address], [address] [place] [address] PCP - General Family Medicine 01/23/21 Clarissa French MD [address] [facility] [place] [address] [email or web address] Insurance Assigned Provider Family Medicine 01/23/21 Lesa Roche MD [address] [place] [address] [address] [place] [address] Orthopedic Surgery 01/23/21 04/28/23 Bryan Lind OD 40 [facility] [address] [place] [address] Optometry 01/23/21 04/28/23 Tasha Coats NP [address] [facility] [address] [place] [address] Family Medicine 04/01/22 Lui Olivier OD [address] [place] [address] [address] [place] [address] Optometry 04/29/23 Amarjit Roa MD [address] [place] [address] [address] [place] [address] Gastroenterology 04/29/23 documented as of this encounter Additional Source Comments The information contained in this document represents components of the legal health record. It is not the complete legal health record.[facility]
--- OUTSIDE RECORDS SUMMARY | 2025-07-20 16:06 | XMS_ITS | Encounter Summary ---
Author Organization [facility] Address [address] [place] [address] [place] [address] Phone Care Team Providers Care Consulting Senior Practice Director Name Role Phone TaiwoSandy hamilton MD Primary Care Provi nicolette Jenny Silva CNP Primary Care Provider [phone] Clarissa French MD Unavailable [phone] InstrLesa gonzales MD Unavailable Bryan Lind OD Unavailable Tasha Coats HEALTHCARE MARKET CONSULTANT Unavailable [phone] Lui Olivier OD Unavailable Amarjit Roa MD Unavailable [phone] Encounter Details Date Type Department Care Team (Late st Contact Info) Description 10/24/2020 Ancillary Orders Virtual Department [address] [place] [address] Shawna Lara MD [address] [place] [address] Breast screening Social History Tobacco Use Types Packs/Day Years Used Date Smoking Tobacco: Never Assessed Comments No Sex and Gender Information Value Date Recorded Sex Assigned at Female 01/20/2021 10:26 AM EDT Legal Sex Female 9:45 PM EDT Gender Identity Female 01/20/2021 10:26 AM EDT Sexual Orientation Straight 01/20/2021 10 :26 AM EDT documented as of this encounter Plan of Treatment Upcoming Encounters Date Type Department Care Team (Late st Contact Info) Description 05/25/2026 2:30 PM EDT Office Visit [facility] Primary Care [facility] [address] [place] [address] Jenny Silva CNP 22 [facility] [place] [address] documented as of this encounter Visit Diagnoses Diagnosis Breast screening Breast screening, unspecified documented in this encounter Care Teams Consulting Senior Practice Director Relationship Specialty Start Date End Date Sandy Maravilla MD [address] [place] [phone] PCP - General Internal Medicine 10/12/18 01/22/21 Jenny Silva CNP [address] [place] [address], [address] [place] [address] PCP - General Family Medicine 01/23/21 Clarissa French MD [address] [place] [address], [address] [place] [address] Insurance Assigned Provider Family Medicine 01/23/21 InstrumLesa MD [address] [place] [address] [place] [address] Orthopedic Surgery 01/23/21 04/28/23 Bryan Lind OD [address] [place] [address] [address] [place] [address] Optometry 01/23/21 04/28/23 Tasha Coats NP 8 [facility] [address] [place] [address] Family Medicine 04/01/22 Lui Olivier OD 40 [facility] [address] [place] [address] Optometry 04/29/23 Amarjit Roa MD [address] [place] [address] [address] [place] [address] Gastroenterology 04/29/23 documented as of this encounter Additional Source Comments The information contained in this document represents components of the legal health record. It is not the complete legal health record.[facility]
--- OUTSIDE RECORDS SUMMARY | 2025-07-20 16:06 | XMS_ITS | Patient Health Record ---
Author Organization [facility] Address [address] [place] [address] Care Team Providers Care Marketing Support Specialist Name Role Phone Jenny Silva Primary Care Provider Amarjit Snow Unavailable [phone] Allergies Allergen (clinical drug ingredient) Drug/Non Drug [...] stop date) Current Smoker NA - NA Social History Drugs/Alcohol: Social Info Question Answer Notes Alcohol Screen Did you have a drink containing alcohol in the past year? Yes How often did you have a drink containing alcohol in the past year? 4 or more times a week (4 points) How many drinks did you have on a typical day when you were drinking in the past year? 3 or 4 drinks (1 point) How often did you have 6 or more drinks on one occasion in the past year? Never (0 point) Points 5 Interpretation Positive Tobacco Use: Social Info Question Answer Notes Tobacco Use/Smoking Patient is a current smoker How often do you smoke cigarettes? every day How many cigarettes a day do you smoke? 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 Section Notes: Smoker 4-6 cigs QD; drinks S cotch 2 drinks 4-5 times a day Problems Problem Type SNOMED Code ICD Code Onset Dates Problem Status W/U Status Risk Notes Problem Screening for malignant neoplasm of colon (177887624) Encounter for screening for malignant neoplasm of colon (Z12.11) Active confirmed Problem Preprocedural examination (041839196873673) Preprocedural examination (Z01.818) Active confirmed Problem Diverticulosis of colon (510151062) Diverticulosis of colon (K57.30) Active confirmed Plan Of Treatment Pending Test Test Name Order Date Pathology 08/02/2021 Future Test Test Name Order Date COLONOSCOPY 07/04/2021 Insurance Providers Payer Name Payer Address Payer Phone Subscriber Number Group Number Insured Name Patient Relationship to Insured Coverage Start Date Coverage End Date [facility] [address] [place] [phone] [id number] HOLLY BEAULIEU Self - patient is the insured Medical (General) History Medical History History ICD Code Denies AR,DM,CVA,Lung disease,renal dise ase Surgical History Surgery Date(Month/Year) 2 knee replacements 2014
--- OUTSIDE RECORDS SUMMARY | 2025-07-20 16:06 | XMS_ITS | Encounter Summary ---
Author Organization [facility] Address [address] [place] [id number] Phone Care Team Providers Care Pulp Bleacher Name Role Phone Sandy Maravilla MD Primary Care Provi nicolette Jenny Silva CNP Primary Care Provider [phone] Clarissa French MD Unavailable [phone] InstrLesa gonzales MD Unavailable Bryan Lind OD Unavailable Tasha Coats FARM TECHNICIAN Unavailable [phone] Lui Olivier OD Unavailable [phone] Amarjit Roa MD Unavailable [phone] Encounter Details Date Type Department Care Team (Late st Contact Info) Description 10/12/2018 Ancillary Orders Virtual Department [address] [place] [address] Sandy Maravilla MD [address] [place] [address] Breast screening Social History Tobacco Use Types Packs/Day Years Used Date Smoking Tobacco: Never Assessed Comments Unknown Sex and Gender Information Value Date Recorded Sex Assigned at Female 01/20/2021 10:26 AM EDT Legal Sex Female 9:45 PM EDT Gender Identity Female 01/20/2021 10:26 AM EDT Sexual Orientation Straight 01/20/2021 10 :26 AM EDT documented as of this encounter Plan of Treatment Upcoming Encounters Date Type Department Care Team (Late st Contact Info) Description 05/25/2026 2:30 PM EDT Office Visit [facility] Primary Care [facility] [address] [place] [address] Jenny Silva, KANE [address] [facility] [place] [address] [email or web address] documented as of this encounter Results * BI MAMMOGRAM SCREENING WITH TOMOSYNTHESIS WITH CAD (BILATERAL) (10/19/2018 8:08 AM EDT) Anatomical Region Laterality Modality Breast Left, Breast Right, Breast Bilateral Bila teral Mammography 10/19/2018 2:19 PM EDT Impressions 10/19/2018 2:26 PM EDT BILATERAL BREASTS: Negative, no evidence of malignancy. Normal interval follow- up is recommended in 12 months. Bi-RAD: BI-RADS CATEGORY: 1 - Negative. DENSITY: There are scattered fibroglandular densities. POS - CDHMAMA Narrative 10/19/2018 2:26 PM EDT STUDY: Bilateral screening mammography with tomosynthesis and CAD TECHNIQUE: Bilateral full-field digital screening mammography is obtained and read in conjunction with computer-aided detection. Tomosynthesis as well as 2-D C view imaging were obtained. COMPARISON: Comparison made to June 14, 2013, and January 22, 2011. BREAST COMPOSITION: There are scattered areas of fibroglandular density BILATERAL BREASTS: No significant masses, calcifications or other abnormalities are seen. Procedure Note Mya Allen MD - 10/19/2018 STUDY: Bilateral screening mammography with tomosynthesis and CAD TECHNIQUE: Bilateral full-field digital screening mammography is obtainedand read in conjunction with computer-aided detection. Tomosynthesis aswell as 2-D C view imaging were obtained. COMPARISON: Comparison made to June 14, 2013, and January 22, 2011. BREAST COMPOSITION: There are scattered areas of fibroglandulardensity BILATERAL BREASTS: No significant masses, calcifications or otherabnormalities are seen. IMPRESSION: BILATERAL BREASTS: Negative, no evidence of malignancy. Normal intervalfollow-up is recommended in 12 months. Bi-RAD: BI-RADS CATEGORY: 1 - Negative. DENSITY: There are scattered fibroglandular densities. POS - CDHMAMA Sandy Maravilla MD IMG MG EXAMS Fin al Result documented in this encounter Visit Diagnoses Diagnosis Breast screening Breast screening, unspecified Breast screening Breast screening, unspecified documented in this encounter Care Teams Pulp Bleacher Relationship Specialty Start Date End Date Sandy Maravilla MD [address] [place] [phone] PCP - General Internal Medicine 10/12/18 01/22/21 Jenny Silva CNP [address] [facility] [place] [address] PCP - General Family Medicine 01/23/21 Clarissa French MD [address] [facility] [place] [address] Insurance Assigned Provider Family Medicine 01/23/21 InstrLesa gonzales MD [address] [place] [address] [place] [address] Orthopedic Surgery 01/23/21 04/28/23 Bryan Lind OD [address] [place] [address] [address] [place] [address] Optometry 01/23/21 04/28/23 Tasha Coats NP [address] [facility] [address] [place] [address] Family Medicine 04/01/22 DugwayLui cobb KALEB [address] [facility] [address] [place] [address] Optometry 04/29/23 Amarjit Roa MD [address] [facility] [address] [place] [address] Gastroenterology 04/29/23 documented as of this encounter Additional Source Comments The information contained in this document represents components of the legal health record. It is not the complete legal health record.[facility]
--- OUTSIDE RECORDS SUMMARY | 2025-07-20 16:06 | XMS_ITS | Clinical Summary ---
Author Organization [facility] Address [address] [place] [address] [place] [phone] Phone Care Team Providers Care Medical Lab Scientist Name Role Phone Jenny Silva CNP Primary Care Provider [phone] Clarissa French MD Unavailable [phone] Tasha Coats SENIOR DEVELOPER Unavailable [phone] Lui Olivier OD Unavailable Amarjit Roa MD Unavailable [phone] Allergies Active Allergy Reactions Criticality Noted Date Comments Cephalexin Hives 08/23/2021 Varenicline Other (See Comments) 05/03/2024 Nightmares Shellfish Containing Products Diarrhea,Nausea and/or Vomiting 01/23/2021 Mold 01/23/2021 Sulfa (Sulfonamide Antibiotics) Unknown 07/20/2021 Sulfamethoxazole Rash Low 08/23/2021 Bupropion Hcl (Smoking Deter) 01/23/2021 Made her feel numb Medications desonide (DESOWEN) 0.05 % cream Apply 1 application topically as needed. 60 g 1 Active Additional Information Patient not taking.Reported on 05/17/2025 triamcinolone acetonide 0.1 % cream Apply to affected skin on the body twice daily as needed. Do not apply to the face. Do not apply for more than 2 weeks in a row. 30 g 2 Active Additional Information Patient not taking.Reported on 05/17/2025 cyclobenzaprine (FLEXERIL) 10 MG tablet Take 1 tablet (10 mg total) by mouth nightly at bedtime as needed. 10 tablet 4 Active cholecalciferol, vitamin D3, 25 mcg (1,000 unit) capsule Take 1,000 Units by mouth daily. Active therapeutic multivitamin tablet Take 1 tablet by mouth daily. Active Active Problems Problem Noted Date Diagnosed Date Daily consumption of alcohol 05/17/2025 Assessment & Plan (05/17/2025 3:03 PM EDT): She is aware of the health risks. She is precontemplative. Diffuse pain 05/03/2024 Assessment & Plan (05/17/2025 3:03 PM EDT): She consulted with rheumatology this summer but declined to follow that practice to [place]. I've given up on the medical system. I am happy to refer her to another location if desired. Labs were reassuring. Rheumatology felt that symptoms were likely due to fibromyalgia. We discussed medication options at her last visit. Assessment & Plan (02/17/2025 12:14 PM EDT): We will try to obtain notes and lab results from [facility]ology. Working diagnosis is fibromyalgia. Treatment recommendations reviewed including CBT, physical therapy, gentle exercise such as jaci chi, walking, pool. We discussed that next steps include medication management including TCAs, SNRIs, and sometimes pregabalin. I do not know of another local rheumatology group that is accepting patients except for [facility] and that group is also in [place] and she would not drive there. For now, await records. She declines referral to PT or to consider CBT at this time. It's in my body. My body hurts. CBT for pain is discussed. Assessment & Plan (12/20/2024 12:55 PM EDT): Elevated ESR and mildly elevated CRP. We discussed potential diagnosis of PMR and treatment with prednisone. She states that she took a prednisone burst years ago to reset my system (through prior PCP) and It was like eating speed. She states that she didn't sleep for days. Inflammatory markers are likely multifactorial, perhaps with PMR, and we discussed that these can be elevated with smoking, obesity, etc. She would like to meet with rheumatology first and referral is placed to [facility]. Orders: Ambulatory referral to External Rheumatology Assessment & Plan (11/01/2024 8:48 AM EDT): She reports that the severe wrist and hand pain that she experienced with the statin has not recurred but she has joint and muscle discomfort very diffusely. This does not sound quite like PMR but will check inflammatory markers. Orders: TSH with reflex; Future Sedimentation rate (ESR); Future C-Reactive Protein; Future Assessment & Plan (05/03/2024 8:55 AM EDT): Gradual improvement since discontinuation of statin. Cyst, vulva 05/03/2024 Assessment & Plan (05/03/2024 8:52 AM EDT): Referred to [facility] for excision. She will schedule an appointment. Diverticulosis of colon 04/29/2023 04/29/20 Encounter for general adult medical examination with abnormal findings 04/29/2023 Assessment & Plan (05/17/2025 3:03 PM EDT): Flu shot today. She plans Covid vaccine at the pharmacy. Warning signs of breast cancer and breast self-awareness reviewed. She will schedule her next mammogram. Pap smear 2026 given only one prior pap smear available to review. Colonoscopy 2026 per GI. Labs are up to date. Continue regular dental and eye care. Assessment & Plan (05/03/2024 8:52 AM EDT): Flu shot today. Covid vaccine at the pharmacy. Other immunizations are up to date. Warning signs of breast cancer and breast self-awareness reviewed. Next screening pap smear 2026 per ASCCP guidelines. Colonoscopy 2026. Fasting labs as below. Continue regular dental and eye care. Assessment & Plan (04/29/2023 9:28 AM EDT): Flu shot today. Covid vaccine recommended. We discussed RSV. Warning signs of breast cancer and breast self-awareness reviewed. She agrees to schedule mammogram. Next screening pap smear 2026 per ASCCP guidelines. Colonoscopy 2026. Labs are up to date. Continue regular dental and eye care. Impaired fasting glucose 11/26/2022 Assessment & Plan (12/20/2024 12:55 PM EDT): Glucose in the prediabetes range, A1c 5.7% on recent labs. Try to work on food choices, Mediterranean style diet given limited activity due to pain. Assessment & Plan (11/01/2024 8:48 AM EDT): Check labs this morning; she had black coffee only. Orders: CBC and differential; Future Comprehensive metabolic panel; Future Hemoglobin A1c; Future Assessment & Plan (05/03/2024 8:53 AM EDT): Update fasting glucose and A1c. Encouraged to reduce her alcohol intake which is likely contributing to weight gain, glucose intolerance. She is aware. Assessment & Plan (04/29/2023 9:31 AM EDT): Check labs regularly. Encouraged continued exercise, walking. She is aware that alcohol is likely contributing and we discussed the effect of alcohol on hepatic disease and cancer risk. She is not interested in reducing at this time. Elevated blood pressure read ing without diagnosis of hypertension 08/23/2021 Assessment & Plan (05/17/2025 3:03 PM EDT): Improved on recheck. HR is a bit elevated. Assessment & Plan (11/01/2024 8:48 AM EDT): BP borderline today. Activity has been limited due to medication side effects through the fall and winter and then illnesses. Follow up in 6 months for CPE. Assessment & Plan (05/03/2024 8:52 AM EDT): BP and HR improved on my recheck. Suspect that deconditioning is causing exertional rises. Encouraged more activity. Assessment & Plan (04/29/2023 9:28 AM EDT): At goal today. Monitor closely. Mixed hyperlipidemia 08/23/2021 Assessment & Plan (12/20/2024 12:55 PM EDT): ASCVD risk remains elevated. She would like to address her pain before considering Repatha/cardiology consult. Assessment & Plan (11/01/2024 8:48 AM EDT): Intolerant of rosuvastatin. If LDL is >190 or calculated risk is >/= 7.5% I will refer to cardiology to consider injectables given the marked reaction with rosuvastatin. Orders: Lipid panel; Future Assessment & Plan (05/03/2024 8:54 AM EDT): She stopped rosuvastatin in late February or early March because of diffuse pain. Update fasting labs. Given the severity of this reaction, we discussed trial of a different statin or Zetia or consult with cardiology to see if an injectable would be more appropriate if LDL is again >190. Await labs. Assessment & Plan (04/29/2023 9:29 AM EDT): Joint pain with daily dosing of rosuvastatin. She inquires about every other day dosing and I am amenable to her trying this and updating labs in 3 months but she has a hard time with the lab hours and plans to continue daily dosing. Tubular adenoma of colon 08/23/2021 Knee pain 01/23/2021 Morbid obesity with BMI of 40.0-44.9, adult 12/27 Assessment & Plan (05/17/2025 3:03 PM EDT): Activity is limited by pain. Will monitor closely with labs. Assessment & Plan (12/20/2024 12:55 PM EDT): She is anxious to be more active but is limited by pain. Assessment & Plan (11/01/2024 8:48 AM EDT): Weight is up 10 pounds from the fall likely due to illnesses and decreased exercise. Await labs. Mammogram obtained from [facility] and reviewed on DOS. It was normal and is now available in her chart. Assessment & Plan (05/03/2024 8:48 AM EDT): Weight is up 15 pounds since her CPE last fall. She reports decreased activity because of pain. Discomfort is improving and I encouraged gentle movement. If she is not able to incorporate this over the next month she will call. Assessment & Plan (04/29/2023 9:31 AM EDT): As above. Will continue to monitor closely and update labs regularly. Regular exercise encouraged. Eczema 01/23/2021 Smoker 01/23/2021 Assessment & Plan (05/17/2025 3:03 PM EDT): She has reduced her intake recently. Try to avoid increasing again. Assessment & Plan (12/20/2024 12:55 PM EDT): She is aware of the health risks. Assessment & Plan (11/01/2024 8:48 AM EDT): She smokes 1/2 pack per week. She has been able to quit for periods of time when acutely ill. Continue to work on this. Assessment & Plan (05/03/2024 8:57 AM EDT): She is pre-contemplative. She has gone several days without smoking and we discussed using nicotine replacement to extend the periods of time without smoking. She will consider but is not interested in quitting at this time. We spent 3 minutes in discussion. Assessment & Plan (04/29/2023 9:30 AM EDT): She is aware of the health risks. She asks about vaping and we discussed this. She is precontemplative. I offered support with cessation when she is ready. Rhinitis 01/23/2021 Chronic low back pain 01/23/2021 Assessment & Plan (04/29/2023 9:29 AM EDT): She had effect with combination ibuprofen-APAP and can use this with food. I sent a small supply of cyclobenzaprine; if this is ineffective she needs in person evaluation with next flare. Encounters Date Type Department Care Team Description 06/12/2025 Telephone [facility] [address] [place] [address] Jenny Silva CNP 05/17/2025 2:30 PM EDT Office Visit [facility] [address] [place] [address] Jenny Silva CNP Encounter for general adult medical examination with abnormal findings (Primary Dx); Acute cough; Elevated blood pressure reading without diagnosis of hypertension; Diffuse pain; Smoker; Daily consumption of alcohol; Morbid obesity with BMI of 40.0-44.9, adult; Needs flu shot from Last 3 Months Immunizations Immunization Administration Dates Next Due COVID-19 (Pre-05/18) Crystal Vaccine, rS-Ad26, PF 10/31/2020 COVID-19 Pfizer Comirnaty Vaccine 12+ 05/01/2023 DTaP 08/06/2010 INFLUENZA, SPLIT VIRUS, TRIVALENT PF 05/17/2025, 05/03/2024 INFLUENZA, SPLIT VIRUS, TRIV ALENT W/ PRESERVATIVE IM 05/17/2021,04/26/2021,04/13/2019,08/16,06/04/2014,04/29/2014,04/22/2013 ,06/07/2012,05/30/2012,08/12/2011,07/27,07/08/2006 Influenza Quadrivalent Prese rvative Free IM 04/29/2023,05/06/2022,05/18/2020,04/25 Influenza Trivalent MDCK Pre servative Free IM 04/23/2015 Influenza, whole 04/20/2009,06/08/2008, 7 Pneumococcal conjugate PCV20 04/01/2022 Pneumococcal polysaccharide PPSV23 10/23/2014 RSV Vaccine (monovalent, adjuvanted) 05/01/2023 Rabies Diploid Cell Culture 03/13/2023 Rabies Fibroblast Culture 03/27/2023,03/20/2023 Td (adult),2 Lf Tetanus Toxo id, PF, Adsorbed 01/23/2021,12/31/1999 Tdap 08/06/2010 Zoster recombinant 08/23/2021,03/25/2021 Family History Medical History Relation Comments Hypertension Brother Seizures Brother Sleep apnea Brother Arthritis Father Benign prostatic hyperplasia Father Cataracts Father Dementia Father Glucose intolerance Father Tx with metf ormin Heart attack Father Age 80s with charli nt placement Colon cancer Maternal Cousin 1 1st cousin. Ch emical exposure. Leukemia Maternal Cousin 2 Aneurysm Maternal Grandfather Dementia Maternal Grandmother Arthritis Mother Cataracts Mother Dementia Mother Hearing loss Mother Hypertension Mother Stroke Mother No Known Problems Paternal Grandfather No Known Problems Paternal Grandmother Breast cancer Neg Hx Diabetes Neg Hx Glaucoma Neg Hx Macular degeneration Neg Hx Prostate cancer Neg Hx Relation Status Comments Brother Alive Father (Age 97) Maternal Cousin 1 Alive Maternal Cousin 2 Alive Maternal Grandfather Maternal Grandmother Mother (Age 95) Paternal Grandfather Paternal Grandmother Social History Tobacco Use Types Packs/Day Years Used Date Smoking Tobacco: Every Day Cigarettes 0.1 50 Started: 1975 Smokeless Tobacco: Never Tobacco Cessation:Ready to Q uit: Not Asked; Counseling Given: Not Answered Comments:1/2 pack/week (2024) Alcohol Use Standard Drinks/Week Comments Yes 14 [...] high school, GED, job training, learning the Bengali language, technical skills, or developing parenting skills)? [...] Industry Job Start Date Job End Date [employer] Not on file Not on file Not on file Last Filed Vital Signs Vital Sign Reading Time Taken Comments Blood Pressure 128/76 05/17/2025 2:44 PM EDT Pulse 121 05/17/2025 2:18 PM EDT Temperature 36.5 C (97.7 F) 05/17/2025 2:18 PM EDT Respiratory Rate 20 11/26/2022 7:52 AM EDT Oxygen Saturation 97% 05/17/2025 2:18 PM EDT Inhaled Oxygen Concentration - - Weight 122 kg (269 lb) 05/17/2025 2:18 PM EDT Height 166 cm (5' 5.35 ) 05/17/2025 2:18 PM EDT Body Mass Index 44.28 05/17/2025 2:18 PM EDT Plan of Treatment Upcoming Encounters Date Type Department Care Team (Late st Contact Info) Description 05/25/2026 2:30 PM EDT Office Visit [facility] [address] [place] [address] Jenny Silva, KANE [address] [facility], [address] [place] [address] [email or web address] Health Maintenance Due Date Last Done Comments COLOGUARD 2007 FIT TEST 2007 FOBT 2007 SIGMOIDOSCOPY 2007 VIRTUAL COLONOSCOPY 2007 COVID-19 VACCINE ( season) 2025 06/03/2024, 05/01/2023, 05/22/2022, Additional history exists DEPRESSION SCREENING 05/16/2026 05/16/2025 SMOKING Hx and SMOKELESS TOBACCO SCREENING 05/17/2026 05/17/2025 COLONOSCOPY 08/02/2026 08/02/2021 COLORECTAL CANCER SCREENING 08/02/2026 MAMMOGRAM 09/20/2026 09/20/2024, 01/25, 10/19/2018 PAP SMEAR 04/01/2027 04/01/2022, 11/02/2018 SCREENING FOR DIABETES 12/15/2027 , 12/14/2024, 11/05/2018 LIPID PANEL 12/14/2029 12/14/2024, 02/25, 11/14/2022, Additional history exists Adult Td,Tdap Booster 01/23/2031 01/23/2021 , 08/06/2010, 12/31/1999 HEPATITIS C SCREENING Completed 08/19/2021 HIV ONE-TIME SCREENING (18-65 YEARS) Completed 08/19/2021 ZOSTER VACCINES Completed 08/23/2021, 03/25/2021 PNEUMOCOCCAL VACCINES (50+ years) Completed 04/01/2022, 10/23/2014 RSV VACCINE Completed 05/01/2023 INFLUENZA VACCINE Completed 05/17/2025, , 04/29/2023, Additional history exists HEPATITIS A VACCINES Aged Out No long er eligible based on patient's age to complete this topic HIB VACCINES Aged Out No longer eligi ble based on patient's age to complete this topic MENINGOCOCCAL VACCINES (ACWY) Aged Out No longer eligible based on patient's age to complete this topic MENINGOCOCCAL VACCINES (B) Aged Out N o longer eligible based on patient's age to complete this topic Medical Devices Not on file Procedures Procedure Name Priority Date/Time Associated Diagnosis Comments LIPID PANEL Routine 12/14/2024 8:00 AM EDT Mixed hyperlipidemia BI MAMMOGRAM SCREENING (BILATERAL) Routine 09/20/2024 8:45 AM EST Screening breast examination PAP TEST Routine 04/01/2022 12:00 AM EDT HEPATITIS C ANTIBODY, QUALITATIVE Routine 08/19/2021 7:41 AM EST Need for hepatitis C screening test HM COLONOSCOPY FOR RESULT ENTRY ONLY Routine 08/02/2021 OUTSIDE GLUCOSE FASTING Routine 11/05/2018 from Last 3 Months or Most Recently Relevant to Health Maintenance Results * (ABNORMAL) Lipid panel (12/14/2024 8:00 AM EDT) HDL 61 mg/dL [facility] Comment: Interpretation <40 mg/dL: Low HDL cholesterol (major risk factor for CHD) Greater than or equal to 60 mg/dL: High HDL cholesterol ( negative risk factor for CHD) HDL - cholesterol is affected by a number of factors, e.g. smoking, excerise, hormones, sex and age. CHOLESTEROL 229 0 - 240 mg/dL [facility] TRIGLYCERIDES 181(H) 30 - 160 mg/dL [facility] LDL 132(H) 50 - 129 mg/dL [facility] Comment: LDL levels in terms of risk for coronary heart disease: <100 mg/dL: Optimal 100-129 mg/dL: Near or above optimal 130-159 mg/dL: Borderline high 160-189 mg/dL: High >190 mg/dL: Very High CARDIAC RISK RATIO 3.8 3.3 - 4.4 C [facility] Blood 12/14/2024 8:00 AM EDT 12/14/2024 8:20 AM EDT Jenny Silva [facility] LAB BLOOD BKR ORDERABLES Final Result [address] [address] * Mammogram Screening (Bilateral) (09/20/2024 8:45 AM EST) Anatomical Region Laterality Modality Breast Left, Breast Right, Breast Bilateral Bila teral Breast Screening Jenny Silva [facility] IMG MG EXAMS Final Res ult * Pap Smear (04/01/2022 12:00 AM EDT) 04/01/2022 04/02/2022 8:5 5 AM EDT Narrative SEE NARRATIVE - 04/04/2022 1:50 PM EDT [address] [address] Guest Advisor: Porsche Canela MD [facility] Cytology Report FINAL DIAGNOSIS A. PAP SMEAR (SUREPATH) CE: SPECIMEN ADEQUACY: Satisfactory for evaluation; transformation zone absent/insufficient. INTERPRETATION: NEGATIVE FOR INTRAEPITHELIAL LESION OR MALIGNANCY. Electronically Signed Out By: ALLISON Nguyễn(ASCP) The Pap test is a screening test primarily for squamous cancers and precursors and has associated false-negative and false-positive results. New technologies such as liquid-based preparations may decrease but will not eliminate all false-negative results. Regular sampling and follow-up of unexplained clinical signs and symptoms are recommended to minimize false negative results. PROCEDURES/ADDENDA HPV Testing (Requested) Ordered Date: 04/02/2022 A. PAP SMEAR (SUREPATH) CE: Human Papilloma Virus Test Negative for high-risk human papillomavirus types 16, 18, 45 and the Other high risk probe set (Includes 31, 33, 35, 39, 51, 52, 56, 58, 59, 66, 68) by [employer] Onclarity HR-HPV analysis. Clinical correlation is advised. This HPV test was performed at [facility], [address] [place] [address]. This test has been FDA approved for SurePath cervical cytology specimens. The accuracy and precision of this test for all other specimen sources has been verified in the Cytopathology Laboratory of the [facility] and has not been cleared or approved by the U.S. Food and Drug Administration. Clinical correlation is advised. CLINICAL HISTORY Date of Last Menstrual Period: Menstrual History: Post Menopausal Other Clinical Conditions: Screening Pap SPECIMEN SOURCE A: PAP SMEAR (SUREPATH) CE Patient Name: STACY SMART : 1960 (Age: 62) Sex: F Institution: [facility] Location: [facility] Date of Collection: 04/01/2022 Date of Reported: 04/04/2022 13:50 Results to: Jenny Silva MSN Jenny Silva [facility] CYTOLOGY ORDERABLES Final Result SEE NARRATIVE * Hepatitis C antibody, qualitative (08/19/2021 7:41 AM EST) [facility] HCV NON-REACTIV E NON-REACTI VE [facility] Blood 08/19/2021 7:41 AM EST 08/19/2021 7:50 AM EST Jenny Silva [facility] LAB BLOOD BKR ORDERABLES Final Result [facility] [address] [place] [address] * COLONOSCOPY FOR RESULT ENTRY ONLY (08/02/2021) [facility] Colonoscopy TA x 2. Rpt 5 years Historical Provider HEALTH MAINTENANCE Final Result * Outside Glucose,Fasting (11/05/2018) [facility] Glucose, fasting - External 93 65 - 99 mg/dL us Historical Provider LAB BLOOD ORDERABLES Keturah l Result from Last 3 Months or Most Recently Relevant to Health Maintenance Insurance [facility] HMO [address] [place], [place] [id number] [facility] HMO Care Teams Medical Lab Scientist Relationship Specialty Start Date End Date Jenny Silva CNP [address] [place] [address], [address] [place] [address] [email or web address] PCP - General Family Medicine 01/23/21 Clarissa French MD 22 [facility], [address] [place] [address] [email or web address] Insurance Assigned Provider Family Medicine 01/23/21 Tasha Coats NP [address] [facility] [address] [place] [address] Family Medicine 04/01/22 Charline Lui KALEB [address] [place] [address] [address] [place] [address] Optometry 04/29/23 Amarjit Roa MD [address] [place] [address] Gastroenterology 04/29/23 Additional Source Comments The information contained in this document represents components of the legal health record. It is not the complete legal health record.[facility]
[2025-07-20 16:47] LABS: MANUAL DIFF FLAG NO
[2025-07-20 16:55] LABS: Hematocrit 48.9 % (37.0-47.0); Hemoglobin 15.6 g/dl (12.0-16.0); Imm Gran Abs Auto 0.03 X10*3/uL (0.00-0.03); Imm Gran Pct Auto 0.4 % (0.0-0.4); Lymphocytes Absolute Auto 1.9 X10*3/uL (1.2-4.9); Mean Corpuscular HGB Conc 31.9 g/dl (31.0-35.0); Mean Corpuscular Hemoglobin 28.0 pg (27.0-33.0); Mean Corpuscular Volume 87.8 fL (80.0-98.0); NRBC Abs Auto 0.000 X10*3/uL (0.0-0.012); NRBC Pct Auto 0.0 /100WBC (0.0-0.2); Platelet Count 341 X10*3/uL (160-400); Red Blood Count 5.57 X10*6/uL (4.20-5.50); White Blood Count 8.0 X10*3/uL (4.8-10.8)
[2025-07-20 17:01] LABS: Appearance Urine Clear; Glucose Urine UA Negative (Negative); PH 6.0 (5.0-9.0); Specific Gravity - Urine 1.010 (1.005-1.025)
[2025-07-20 17:26] LABS: INTERNATIONAL NORM RATIO 0.9 (0.9-1.1); Prothrombin Time 10.8 SEC (11.2-13.5)
[2025-07-20 17:29] LABS: Partial Thromboplastin Time 27.3 SEC (26.7-34.1)
[2025-07-20 17:40] LABS: Troponin-I High Sensitivity < 2.7 ng/L (<3.5-17.0)
[2025-07-20 17:46] LABS: Alanine Aminotransferase 22 U/L (0-31); Albumin Level 3.9 g/dL (3.5-5.0); Alkaline Phosphatase 116 U/L (39-117); Anion Gap 13 (12-20); Aspartate Amino Transferase 27 U/L (5-31); Blood Urea Nitrogen 15 mg/dL (9-16); Calcium 9.3 mg/dL (8.4-10.2); Carbon Dioxide 22 mmol/L (22-29); Chloride 110 mmol/L (96-108); Creatinine Clr Calc Pharmacy 94.7; Estimated Glomerular Filt Rate > 60; Magnesium 2.2 mg/dL (1.6-2.6); Potassium 4.3 mmol/L (3.3-5.1); Sodium 141 mmol/L (135-145); Total Protein 8.0 g/dL (6.5-8.0)
[2025-07-20 19:22] VITALS: BP 125/93; PULSE 73; RESP 18; TEMP 36.6; O2SAT 97
--- NOTE | 2025-07-20 19:24 | PC.NURSE ---
20 g IV right forearm
--- NOTE | 2025-07-20 19:40 | ED_ITS ---
HPI - General Adult General Chief complaint: General Medical Stated complaint: intermittent headache x 3days, general weakness Time Seen by Provider: 07/20/25 16:21 History of Present Illness HPI narrative: Author / Clinician: Gary Peguero MD Chief Complaint Severe intermittent headache x 2 weeks with new-onset incoordination. History of Present Illness CARLITA is a middle-aged female presenting with two weeks of ?raging? headaches she initially attributed to chronic left-sided sinus problems. She has been taking [id number] Advil combination products with partial relief. Three days ago (Thursday) she noted abrupt difficulty with fine-motor tasks (hooking bra, typing, placing hair in ponytail, signing her name). She describes a global incoordination??like a bull in a [employer]??without perceived focal weakness. Intermittent dizziness occurs when standing but resolves quickly. Coworkers drove her home Thursday because she felt unsafe to drive. Her brother noticed slurred speech on the phone today and urged her to seek emergency care, though the patient does not perceive current slurring. She also reports missing objects when reaching?more pronounced on the left?and some difficulty with peripheral vision bilaterally. She canceled a dentist appointment due to feeling unwell. Headache is present currently, constant today, located diffusely (?my head hurts so bad?), associated with nausea but no vomiting. Review of Systems - Constitutional: Positive for nausea. - HEENT: Positive for severe headache; chronic sinus congestion left-sided. - Vision: Reports difficulty with peripheral vision bilaterally and trouble tracking to line ends while reading. - Neurologic: Positive for incoordination, fine-motor difficulty, intermittent dizziness on standing. Brother noted possible slurred speech; patient not aware of current dysarthria. --- Physical Examination Vital Signs: Not available at time of documentation. General: Alert, awake, well appearing, well hydrated. Head: Atraumatic. Eyes: Anicteric, normal conjunctiva; patient reports peripheral vision difficulty but greene grossly intact to finger counting on bedside screen. ENT: Moist mucosa, no pallor. Neck: Supple. Skin: Warm, well perfused. Respiratory: Breathing comfortably, no distress. Clear to auscultation bilaterally, symmetric chest expansion, no wheeze/rales/rhonchi. Cardiovascular: Regular rate and rhythm. No murmurs or rubs. Warm extremities, no edema. Abdominal: Soft, non-tender, no distension. Neurologic: Alert and oriented. Cranial nerves II?XII grossly intact (EOMI, facial symmetry, tongue midline with full excursion). 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 Coordination: no dysmetria observed on [id number]. Gait normal in room. Psych: Calm, cooperative. --- Past Medical History - Chronic back pain - Hyperlipidemia (previously on statin; discontinued due to myalgias) - ?White coat? hypertension - Bilateral knee osteoarthritis s/p bilateral knee replacements - Chronic sinusitis (left-sided predominant) - Remote prolonged antibiotic course for dental infection (one year ago) with subsequent diffuse pain - History of abnormal blood work and rheumatology evaluation (no confirmed rheumatologic diagnosis) Medications No daily prescription medications. Uses OTC Advil combination as needed for headache. Allergies Not discussed. Family History Not discussed. Social History - Drives self normally but has avoided driving since symptom onset due to safety concerns. 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 --- Medical Decision Making Preliminary Differential: - Cerebrovascular event (ischemic stroke/TIA, intracranial hemorrhage) - Intracranial mass or space-occupying lesion - Complicated migraine (including vestibular or atypical migraine) - Sinusitis-related headache - Metabolic or infectious encephalopathy Given persistent severe headache with new neurologic complaints (incoordination, visual field difficulty), acute intracranial pathology must be excluded. This is a moderate complexity encounter with potential threat to bodily function should cerebrovascular pathology be confirmed. Though the patient has a reassuring neurologic exam here the symptoms described particularly to the laterality over the past few days in the left side and the brother who felt she might have been slurring speech in the phone earlier today are suspicious of TIA/CVA although I find no objective findings on exam here MRI should be excluded and telemetry monitoring were be reasonable. Given she has a stroke scale of [address] angiography is indicated. If vascular imaging is desired MR a can be performed at non emergently along with MRI brain. No clear metabolic or toxic logic etiology of the symptoms was elicited in the emergency department. Reassuring lab work see interpretation testing hello --- Plan - Diagnostic imaging: Non-contrast CT head (completed ? no acute intracranial abnormality). - Further imaging: Brain MRI recommended for detailed evaluation; to be obtained after admission. - Laboratory studies: Lab work obtained ? unremarkable. - Analgesia for headache as needed. - Admission to hospital medicine for further evaluation and MRI is recommended. - Neurology evaluation if imaging abnormal or symptoms progress. - Frequent reassessment of neurologic status while in ED and on floor. Independent Data Analysis/Interpretation: - Imaging: Independent interpretation of CT head ? documented as normal. - ECG: Independent interpretation if obtained. Sinus rhythm rate 87 QTC 476. No ischemic changes - POCUS: if performed independently see separate documentation. Additional Complexity: - Independent review of external records: none available at this time. Risk: - High: Threat to life/bodily functions ? possible acute cerebrovascular event or intracranial lesion. --- ED Course, Updates Non-contrast CT head obtained and independently reviewed ? no acute intracranial findings. Initial laboratory results unremarkable. Patient counseled regarding normal CT but persistent concerning symptoms; agreed with recommendation for hospital admission for advanced imaging (MRI brain) and neurology evaluation. Disposition Admit to medicine service for further workup and observation. Critical Care: N/A Related Data Home Medications ?Medication ?Instructions ?Recorded ?Confirmed cyclobenzaprine 10 mg tablet 10 mg PO TID 12/23/24 ergocalciferol (vitamin D2) 1,250 1,250 mcg PO QWEEK 0 12/23/24 01/20/25 mcg (50,000 unit) capsule (Vitamin D2) Allergies Allergy/AdvReac Type Severity Reaction Status Date / Time Sulfa (Sulfonamide Allergy Unknown Verified 07/20/25 15:40 Antibiotics) LOBSTER AdvReac Severe VOMITING/DI Uncoded 07/20/25 15:40 ARRHEA PMFSH Past Medical History Medical History Obesity Tobacco use Dental abscess Chronic sinusitis Chronic back pain Hyperlipidemia Alcohol use disorder Arthritis Back pain Smoker Surgical History History of total left knee replacement History of total right knee replacement Family History Family History Mother Stroke Hypertension Father History of heart attack Hypertension Maternal Aunt Thyroid disease Social History Social History Household Members: Significant Other Housing: House Do you presently have visiting nurse or other home services: No Alcohol intake: current Alcohol intake frequency: a few times a week Comment: Often Patient Tobacco Use Status: Current everyday Tobacco user Tobacco use type: Cigarette Cigarette Packs Per Day: 0.25 Cigarettes Per Day: 5.0 Smoked in Last 30 Days: Yes Patient Interested in Nicotine Replacement: No Second Hand Smoke Exposure: No Have you been hit, kicked, punched, or otherwise hurt by someone within the past year? If so, by whom?: No Do you feel safe in your current relationship?: Yes Is there a partner from a previous relationship who is making you feel unsafe now?: No Are you made to feel afraid or neglected: No Advance Directives: No Advance Directives Information Provided: No Do you have a plan to hurt others: No Plan Recently lost weight without trying: No Eating poorly because of decreased appetite: No Nutrition Risks: No Nutritional Risk Patient : No Physical Exam ED Vital Signs: Vital Signs - 24 hr 07/20/25 15:35 07/20/25 19:22 Temperature 98.2 F 97.8 F Pulse Rate 100 73 Respiratory Rate 20 18 Blood Pressure 119/97 H 125/93 H Pulse Oximetry 100 97 Oxygen Delivery Method Room Air Room Air BMI result Body Mass Index 44.4 NIH Stroke Scale Level of Consciousness: Alert Level of Consciousness Questions: Answers both questions correctly Level of Consciousness Commands: Performs both tasks correctly Best Gaze: Normal Visual: No visual loss Facial Palsy: Normal Motor Arm (Right): No drift Motor Arm (Left): No drift Motor Leg (Right): No drift Motor Leg (Left): No drift Limb Ataxia: Absent Sensory: Normal Best Language: No aphasia Dysarthia: Normal Extinction and Inattention: No abnormality Score: 0 Medications Administered Generic Name Dose Route Start Last Admin Trade Name Freq PRN Reason Stop Dose Admin Enoxaparin Sodium 40 mg 07/20/25 21:00 07/20/25 21:48 Enoxaparin Sodium 40 Mg/0.4 Ml Syringe SUBCUT 40 mg Q24H KARLA Administration Sodium Chloride 1,000 mls @ 100 mls/hr 07/20/25 23:00 07/20/25 23:29 Ns IVCONT 100 mls/hr .Q10H KARLA Administration Nystatin 400,000 unit 07/20/25 21:30 07/20/25 21:48 Nystatin Oral Susp 500,000 Unit/5 Ml Oral.Susp PO 07/22/25 21:29 400,000 unit QID KARLA Administration Protocol Senna 17.2 mg 07/20/25 21:00 07/20/25 22:03 Sennosides 8.6 Mg Tablet PO Not Given BEDTIME KARLA Sodium Chloride 3 ml 07/21/25 00:00 07/20/25 22:48 0.9 % Sodium Chloride Flush 3 Ml Syringe IVFLUSH Not Given QSHIFT KARLA Discontinued Medications Generic Name Dose Route Start Last Admin Trade Name Magalis PRN Reason Stop Dose Admin Ketorolac Tromethamine 15 mg 07/20/25 21:08 07/20/25 21:47 Ketorolac Tromethamine 15 Mg/Ml Vial IVPUSH 07/20/25 21:09 15 mg ONCE ONE Administration Morphine Sulfate 1 mg 07/20/25 22:54 07/20/25 23:33 Morphine Sulfate 4 Mg/Ml Cartridge IVPUSH 07/20/25 22:55 Not Given ONCE ONE Protocol Medical Decision Making Lab Data 07/20/25 16:44 07/20/25 17:12 Labs: Lab Results 07/20/25 07/20/25 07/20/25 Range/Units 16:44 16:54 17:12 WBC 8.0 (4.8-10.8) X10*3/uL RBC 5.57 H (4.20-5.50) X10*6/uL Hgb 15.6 (12.0-16.0) g/dl Hct 48.9 H (37.0-47.0) % MCV 87.8 (80.0-98.0) fL MCH 28.0 (27.0-33.0) pg MCHC 31.9 (31.0-35.0) g/dl RDW 15.0 (11.0-16.0) % Plt Count 341 (160-400) X10*3/uL MPV 10.3 (9.4-12.3) fL Immature Gran % (Auto) 0.4 (0.0-0.4) % Neut % (Auto) 67.8 (45-73) % Lymph % (Auto) 23.4 (20-40) % [place] % (Auto) 6.0 (2-11) % Eos % (Auto) 1.7 (0-4) % Baso % (Auto) 0.7 (0-2) % Lymph # (Auto) 1.9 (1.2-4.9) X10*3/uL [place] # (Auto) 0.5 (0.1-1.2) X10*3/uL Eos # (Auto) 0.1 (0.0-0.4) X10*3/uL Baso # (Auto) 0.1 (0.0-0.2) X10*3/uL Abs Immat Gran (auto) 0.03 (0.00-0.03) X10*3/uL Absolute Neuts (auto) 5.5 (2.0-8.3) x10*3/uL Absolute Nucleated RBC 0.000 (0.0-0.012) X10*3/uL Nucleated RBC % (auto) 0.0 (0.0-0.2) /100WBC Hold Purple Top SEE NOTE PT 10.8 L (11.2-13.5) SEC INR 0.9 (0.9-1.1) APTT 27.3 (26.7-34.1) SEC Sodium 141 (135-145) mmol/L Potassium 4.3 (3.3-5.1) mmol/L Chloride 110 H (96-108) mmol/L Carbon Dioxide 22 (22-29) mmol/L Anion Gap 13 (12-20) BUN 15 (9-16) mg/dL Creatinine 0.82 (0.5-1.4) mg/dL Estim Creat Clear Calc 94.7 Estimated GFR > 60 Random Glucose 101 (60-115) mg/dL Calcium 9.3 (8.4-10.2) mg/dL Magnesium 2.2 (1.6-2.6) mg/dL Total Bilirubin 0.2 (0.0-1.0) mg/dL AST 27 (5-31) U/L ALT 22 (0-31) U/L Alkaline Phosphatase 116 (39-117) U/L Troponin I High Sens < 2.7 (<3.5-17.0) ng/L NT-Pro-B Natriuret Pep 259.7 (<300) pg/mL Total Protein 8.0 (6.5-8.0) g/dL Albumin 3.9 (3.5-5.0) g/dL TSH 1.02 (0.32-4.0) uIU/mL Urine Color Yellow Urine Appearance Clear Urine pH 6.0 (5.0-9.0) Ur Specific [place] 1.010 (1.005-1.025) Urine Protein Negative (Neg-Trace) mg/dL Urine Glucose (UA) Negative (Negative) mg/dL Urine Ketones Negative (Negative) mg/dL Urine Blood Negative (Negative) Urine Nitrite Negative (Negative) Ur Leukocyte Esterase Negative (Negative) Discharge Plan Discharge Clinical Impression: Head ache Patient Disposition: Admitted As Inpatient Interventions: Admission Worksheet (ED) Last Done: 07/21/25 00:21 Discharge Date/Time: 07/21/25 01:04
--- NOTE | 2025-07-20 19:54 | HO.NURTONUR ---
Pt is a 65 y.o. female coming in with a headache x 2 weeks but worse today. Pt also reports left arm has not been working properly x 3 days. GRACE is mostly on the left side. Head CT neg. UA neg. Labs neg. VSS, a&ox4. 20 g IV right forearm. Admit for neuro consult and MRI.
--- NOTE | 2025-07-20 20:03 | PM.IMHP ---
History of Present Illness Date of Service: 07/20/25 Attending physician on admission: Hira Lamar Chief Complaint: left sided weakness Patient is a 65-year-old female with past medical history hyperlipidemia no longer on statin due to side effects, chronic back pain, white coat hypertension, bilateral knee osteoarthritis with bilateral knee total replacements, chronic sinusitis, recent loss of her dental bridge 07/15, negative for rheumatological workup, alcohol use disorder without history of withdrawal symptoms or seizure (2-3 scotch or hard ciders per day), tobacco use disorder (3/4 pack per week, will often smoke 5-6 cigarettes in a row) was BIBA with multiple complaints including dizziness, LUE weakness, and a very persistent headache that became worse over the past weekend. Patient states she also lost a bridge in the upper right gum area on ThursdayJuly 15 spontaneously. Patient had plans to get the bridge repaired but was not feeling well enough to make the dental appointment. 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 Patient was experiencing baseline confusion, and incoordination, left-sided weakness and patient was not able to type on a keyboard or use a brush to comb her hair or get dressed independently. Patient denied any issues initially with speech but then her speech became more garbled and slowed. Patient waited to be seen because she thought she may have had the flu and her symptoms would improve. Patient states her last drink was possibly Thursday07/17/2025. Patient does state she normally drinks 2-3 drinks per day daily, lately more hard cider than scotch. Patient denies any falls or trauma. Patient has not recently traveled or been around anybody with illness. Patient currently denies any chest pain or shortness of breath at rest. Patient is not having any dental/oral pain, abdominal pain, nausea or vomiting. Patient denies chills, fever, night sweats or spine or neck pain. Workup in the ED included CT of the head which was negative for any acute findings. CTA of the head and neck was not ordered. MRI is planned for the a.m.. Urine drug screen pending. UA negative for UTI. Labs indicate no leukocytosis or significant anemia. Chloride 110 but otherwise chemistries negative for any abnormal findings. TSH 1.02. EKG normal sinus rhythm with QTC of 476, no ischemic changes. Troponin negative. Patient being admitted for left-sided weakness and to rule out CVA or other underlying neurological issue. Patient does use alcohol every day to be at risk for alcohol withdrawal. Patient does have a case of thrush as well. Review of Systems Review of Systems: Patient currently denies any chest pain, shortness of breath at rest or with exertion, abdominal pain, nausea or vomiting. Patient is not having any issues with constipation or diarrhea. Patient denies any current open wounds of any kind. Patient denies any falls or trauma or hit to the head. Patient does not take anticoagulation. Patient states she is on no prescription medications at this time. Patient reports ongoing headache in the frontal area. Yes all other systems are reviewed and are negative [facility] Medical History Obesity Tobacco use Dental abscess Chronic sinusitis Chronic back pain Hyperlipidemia Alcohol use disorder Arthritis Back pain Smoker Family History Mother Stroke Hypertension Father History of heart attack Hypertension Maternal Aunt Thyroid disease Surgical History History of total left knee replacement History of total right knee replacement Social History Household Members: Significant Other Housing: House Do you presently have visiting nurse or other home services: No Alcohol intake: current Alcohol intake frequency: a few times a week Comment: Often Patient Tobacco Use Status: Current everyday Tobacco user Tobacco use type: Cigarette Cigarette Packs Per Day: 0.25 Cigarettes Per Day: 5.0 Smoked in Last 30 Days: Yes Patient Interested in Nicotine Replacement: No Second Hand Smoke Exposure: No Have you been hit, kicked, punched, or otherwise hurt by someone within the past year? If so, by whom?: No Do you feel safe in your current relationship?: Yes Is there a partner from a previous relationship who is making you feel unsafe now?: No Are you made to feel afraid or neglected: No Advance Directives: No Advance Directives Information Provided: No Do you have a plan to hurt others: No Plan Recently lost weight without trying: No Eating poorly because of decreased appetite: No Nutrition Risks: No Nutritional Risk Patient : No Meds Allergies Allergy/AdvReac Type Severity Reaction Status Date / Time Sulfa (Sulfonamide Allergy Unknown Verified 07/20/25 15:40 Antibiotics) LOBSTER AdvReac Severe VOMITING/DI Uncoded 07/20/25 15:40 ARRHEA Active Medications: Current Medications Acetaminophen (Acetaminophen 325 Mg Tablet) 650 mg PO Q6H PRN PRN Reason: Pain, Mild 1-3,fever,headache Albuterol/Ipratropium (Albuterol/Iprat 2.5/0.5mg 3 Ml Ampul.Neb) 3 ml INHALE Q4H PRN PRN Reason: Shortness of Breath/Wheezing Calcium Carbonate (Calcium Carbonate 750 Mg Tab.Chew) 750 mg PO Q4H PRN PRN Reason: Heartburn Magnesium Hydroxide (Milk Of Magnesia 30 Ml Oral.Susp) 30 ml PO DAILY PRN PRN Reason: Constipation Melatonin (Melatonin 3 Mg Tablet) 6 mg PO BEDTIME PRN PRN Reason: Insomnia Ondansetron HCl (Ondansetron Hcl 4 Mg/2 Ml Vial) 4 mg IVPUSH Q8H PRN PRN Reason: Nausea and Vomiting Polyethylene Glycol (Polyethylene Glycol 3350 17 Gm Powd.Pack) 17 gm PO DAILY PRN PRN Reason: Constipation Senna (Sennosides 8.6 Mg Tablet) 17.2 mg PO BEDTIME KARLA Sodium Chloride (0.9 % Sodium Chloride Flush 3 Ml Syringe) 3 ml IVFLUSH QSHIFT [facility] Home Medications ?Medication ?Instructions ?Recorded ?Confirmed ?Last Taken ?Type cyclobenzaprine 10 mg tablet 10 mg PO TID 12/23/24 01/20/25 Unknown History ergocalciferol (vitamin D2) 1,250 1,250 mcg PO QWEEK 12/23/24 01/20/25 Unknown History mcg (50,000 unit) capsule (Vitamin D2) Physical Exam Vital Signs and Narrative: Vital Signs: Last Vital Signs Temp 97.8 F 07/20/25 19:22 Pulse 73 07/20/25 19:22 Resp 18 07/20/25 19:22 BP 125/93 H 07/20/25 19:22 Pulse Ox 97 07/20/25 19:22 O2 Del Method Room Air 07/20/25 19:22 BMI result Body Mass Index 44.4 Alert and orientated X3, able to give good history. Short-term memory slightly impaired. Neuro: CN II-X11 intact, visual acuity intact, noted mild left upper extremity weakness on exam no drift, no nuchal rigidity noted, patient has full range of motion in the cervical area EYES: PERRLA, EOM intact, sclerae nonicteric, conjunctiva pink ENT: hearing intact, uvula midline, lips dry, nares patent no epis taxis, tongue with abnormal coating present Cardiac: S1 S2 RRR, no murmur, no JVD, no edema in Lower ext Pulmonary: lungs diminished bilaterally Abdominal: BS active in all 4 quadrants, no guarding, tenderness, rebounding, obese MSK: strength 4/5 left upper upper and 5/5 R upper and B lower extremities : no CVA tenderness no bladder distension Extremities: no edema in lower extremities, PT and DP pulses palpable +2 Psych: mood stable, judgement and insight good Skin: No new rashes or lesions Results Labs 07/20/25 16:44 07/20/25 17:12 Labs: Laboratory Results - last 24 hr 07/20/25 07/20/25 07/20/25 16:44 16:54 17:12 MCV 87.8 MCH 28.0 MCHC 31.9 RDW 15.0 Plt Count 341 MPV 10.3 Immature Gran % (Auto) 0.4 Neut % (Auto) 67.8 Lymph % (Auto) 23.4 Stephens % (Auto) 6.0 Eos % (Auto) 1.7 Baso % (Auto) 0.7 Lymph # (Auto) 1.9 Stephens # (Auto) 0.5 Eos # (Auto) 0.1 Baso # (Auto) 0.1 Abs Immat Gran (auto) 0.03 Absolute Neuts (auto) 5.5 Absolute Nucleated RBC 0.000 Nucleated RBC % (auto) 0.0 Hold Purple Top SEE NOTE PT 10.8 L INR 0.9 APTT 27.3 Anion Gap 13 Estim Creat Clear Calc 94.7 Estimated GFR > 60 Random Glucose 101 Calcium 9.3 Magnesium 2.2 Total Bilirubin 0.2 AST 27 ALT 22 Alkaline Phosphatase 116 Troponin I High Sens < 2.7 Total Protein 8.0 Albumin 3.9 Urine Color Yellow Urine Appearance Clear Urine pH 6.0 Ur Specific Felicity 1.010 Urine Protein Negative Urine Glucose (UA) Negative Urine Ketones Negative Urine Blood Negative Urine Nitrite Negative Ur Leukocyte Esterase Negative ECG Attestation: I personally reviewed and interpreted this ECG as follows: (Normal sinus rhythm QTC 476 no ischemic changes) Prior ECG tracings: available for review Imaging Radiologist's Impressions: CT of the head negative for acute findings Assessment and Plan (1) Left-sided weakness: Status: Acute (2) Alcohol use disorder: Status: Acute (3) Thrush: Status: Acute Plan Patient is a 65-year-old female with past medical history hyperlipidemia no longer on statin due to side effects, chronic back pain, white coat hypertension, bilateral knee osteoarthritis with bilateral knee total replacements, chronic sinusitis, recent loss of her dental bridge 07/15, negative for rheumatological workup, alcohol use disorder without history of withdrawal symptoms or seizure (2-3 scotch or hard ciders per day), tobacco use disorder (3/4 pack per week, will often smoke 5-6 cigarettes in a row) was BIBA with multiple complaints including dizziness, LUE weakness, and a very persistent headache that became worse over the past weekend. Patient being admitted for further neurological evaluation to include MRI and neuro consult. Left-sided weakness/ new onset neurological symptoms to include confusion, incoordination, speech issues Bedside swallow pending, may require speech therapy evaluation - no evidence of expressive or receptive aphasia Aspiration precautions in place MRI, CTA in the a.m. pending (CTA head and neck added due to level of GRACE, pt has poor IV access needs US guided IV placed in AM) Lipid panel pending A1c pending Neurological consult placed Telemetry Fall prevention measures in place PT, OT Blood pressure stable on arrival, avoid hypotension No evidence of nuchal rigidity, fever, chills or infectious process: UA negative Persistent headache Tylenol PRN Toradol x1 Ibuprofen PRN Patient denies history of migraine CT negative for any sinus or mastoid fluid Thrush Nystatin swish and swallow Monitor for improvement Recent spontaneous loss of dental bridge 07/15 No obvious acute manifestations Patient has plans to see dentist for repair, too ill to have it done this past week Alcohol use disorder CIWA ordered Phenobarbital not indicated as CIWA score is currently 0 Thiamine and folic acid ordered Patient drinks anywhere from 2-3 scotch or hard cider hours per day, last drink was possibly this past Thursday Patient denies history of withdrawal or seizure activity related to alcohol use/withdrawal Patient deferred needs for addictions LFTs stable Continue telemetry Obesity Nutritional consult requested Patient counseled on the benefits of weight loss Tobacco use disorder Patient's smokes 3/4 pack per day Deferred need for nicotine patch or gum Patient counseled on the benefits of smoking cessation Patient denies any lung history including COPD/asthma Patient currently on room air DVT prophylaxis: Lovenox as CT of the head is negative for any hemorrhagic findings Med rec pending Full code status Patient may require at least a 2 midnight stay for neurological evaluation including MRI and expert consultation with neuro. Patient will require hemodynamic monitoring secondary to possible alcohol withdrawal. Quality Stroke Does the patient have a stroke diagnosis?: No Reason for No Anti-thrombotic by Day Two: N/A - Med Ordered VTE Prior VTE?: No VTE Risk Level:: Medical - moderate - high VTE Device Contraindication: N/A - Device Ordered VTE Drug Contraindication: N/A - Med Ordered
[2025-07-20 21:13] LABS: NT Pro B Type Natriuretic Pept 259.7 pg/mL (<300)
[2025-07-20 21:46] VITALS: BP 121/75; PULSE 68; RESP 18; TEMP 36.7; O2SAT 98
[2025-07-20] MEDS: Nystatin Oral Susp 500,000 UNIT/5 ML ORAL.SUSP 400000 UNIT PO (21:48)
--- NOTE | 2025-07-20 22:02 | PC.NURSE ---
20 g IV in right forearm removed. Line was patent but pt was reporting severe tenderness in the area. Some bruising present. New IV placed in the right AC, 22 g.
[2025-07-20 23:21] LABS: Resp Syncy Virus RNA Qual PCR NEGATIVE (Negative); SARS COV2 PCR INHOUSE NEGATIVE (Negative)
[2025-07-20 23:46] LABS: Cannabinoid Screen Urine Not Detected (Not Detect)
[2025-07-21] VITALS (7 sets, daily range): BP systolic 107–149; BP diastolic 58–85; PULSE 67–85; RESP 15–20; TEMP 36.2–36.6; O2SAT 95–99
--- NOTE | 2025-07-21 00:38 | PC.NURSE ---
Pt requiring 20 g IV above the wrist for CTA. Pt currently has 22 g IV in right AC. Multiple attempts made to place 20 g IV which were unsuccessful. 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 No staff members available at this time to place IV. Upstairs RN and provider aware.
[2025-07-21 06:32] LABS: MANUAL DIFF FLAG NO
[2025-07-21 06:37] LABS: Hematocrit 43.6 % (37.0-47.0); Hemoglobin 13.6 g/dl (12.0-16.0); Imm Gran Abs Auto 0.02 X10*3/uL (0.00-0.03); Imm Gran Pct Auto 0.3 % (0.0-0.4); Lymphocytes Absolute Auto 2.2 X10*3/uL (1.2-4.9); Mean Corpuscular HGB Conc 31.2 g/dl (31.0-35.0); Mean Corpuscular Hemoglobin 27.9 pg (27.0-33.0); Mean Corpuscular Volume 89.5 fL (80.0-98.0); NRBC Abs Auto 0.000 X10*3/uL (0.0-0.012); NRBC Pct Auto 0.0 /100WBC (0.0-0.2); Platelet Count 316 X10*3/uL (160-400); Red Blood Count 4.87 X10*6/uL (4.20-5.50); White Blood Count 7.3 X10*3/uL (4.8-10.8)
[2025-07-21 06:57] LABS: Alanine Aminotransferase 17 U/L (0-31); Albumin Level 3.4 g/dL (3.5-5.0); Alkaline Phosphatase 99 U/L (39-117); Anion Gap 11 (12-20); Aspartate Amino Transferase 24 U/L (5-31); Blood Urea Nitrogen 9 mg/dL (9-16); Calcium 8.5 mg/dL (8.4-10.2); Carbon Dioxide 20 mmol/L (22-29); Chloride 112 mmol/L (96-108); Cholesterol 185 mg/dL (<200); Creatinine Clr Calc Pharmacy 105.0; Estimated Glomerular Filt Rate > 60; HDL Cholesterol 44 mg/dL (>40); Potassium 4.1 mmol/L (3.3-5.1); Sodium 139 mmol/L (135-145); Total Protein 7.0 g/dL (6.5-8.0); Triglycerides 153 mg/dL (<150)
--- NOTE | 2025-07-21 07:37 | HO.PM.IMPN ---
Subjective Subjective Date of Service: 07/21/25 Interval History: Patient reports a graft here, left upper extremity weakness MRI, MRV being done Neuro consult PTOT Reports headache Reports her brother GERD diagnosed with a CATHY and positive lupus antigen a week ago, reports he had seizures and intracranial bleed at [facility] and [facility] and thought that we should be doing this history- explain to her that it is had a heritable and not necessarily genetic component Physical Exam Exam: Exam: General: AOx3, no acute distress, morbid obesity Resp: CTA bilaterally CVS: S1, S2, RRR GI: +BS, NT, no distention Neuro: Agraphia +, LUE 3/5 strength Vital Signs: Vital Signs: Last Vital Signs Temp 97.6 F 07/21/25 07:22 Pulse 83 07/21/25 07:22 Resp 18 07/21/25 07:22 BP 141/95 H 07/21/25 07:22 Pulse Ox 97 07/21/25 07:22 O2 Del Method Room Air 07/21/25 07:22 BMI result Body Mass Index 44.4 Objective Data Active Medications Acetaminophen (Acetaminophen 325 Mg Tablet) 650 mg PO Q6H PRN PRN Reason: Pain, Mild 1-3,fever,headache Last Admin: 07/21/25 01:41 Dose: 650 mg Documented By: TORIBIO Albuterol/Ipratropium (Albuterol/Iprat 2.5/0.5mg 3 Ml Ampul.Neb) 3 ml INHALE Q4H PRN PRN Reason: Shortness of Breath/Wheezing Calcium Carbonate (Calcium Carbonate 750 Mg Tab.Chew) 750 mg PO Q4H PRN PRN Reason: Heartburn Enoxaparin Sodium (Enoxaparin Sodium 40 Mg/0.4 Ml Syringe) 40 mg SUBCUT Q24H [facility] Last Admin: 07/20/25 21:48 Dose: 40 mg Documented By: THANH Folic Acid (Folic Acid 1 Mg Tablet) 1 mg PO DAILY [facility] Sodium Chloride (Ns) 1,000 mls @ 100 mls/hr IVCONT .Q10H [facility] Last Admin: 07/20/25 23:29 Dose: 100 mls/hr Documented By: THANH Ibuprofen (Ibuprofen 400 Mg Tablet) 400 mg PO Q6H [facility] Last Admin: 07/21/25 06:30 Dose: 400 mg Documented By: TORIBIO Magnesium Hydroxide (Milk Of Magnesia 30 Ml Oral.Susp) 30 ml PO DAILY PRN PRN Reason: Constipation Melatonin (Melatonin 3 Mg Tablet) 6 mg PO BEDTIME PRN PRN Reason: Insomnia Nystatin (Nystatin Oral Susp 500,000 Unit/5 Ml Oral.Susp) 400,000 unit PO QID [facility]; Protocol Stop: 07/22/25 21:29 Last Admin: 07/20/25 21:48 Dose: 400,000 unit Documented By: THANH Ondansetron HCl (Ondansetron Hcl 4 Mg/2 Ml Vial) 4 mg IVPUSH Q8H PRN PRN Reason: Nausea and Vomiting Polyethylene Glycol (Polyethylene Glycol 3350 17 Gm Powd.Pack) 17 gm PO DAILY PRN PRN Reason: Constipation Senna (Sennosides 8.6 Mg Tablet) 17.2 mg PO BEDTIME [facility] Last Admin: 07/20/25 22:03 Dose: Not Given Documented By: THANH Non-Admin Reason: Patient Refused Sodium Chloride (0.9 % Sodium Chloride Flush 3 Ml Syringe) 3 ml IVFLUSH QSHIFT [facility] Last Admin: 07/20/25 22:48 Dose: Not Given Documented By: THANH Non-Admin Reason: per nurse Thiamine HCl (Thiamine Hcl 100 Mg Tablet) 100 mg PO DAILY [facility] Labs 07/21/25 06:24 07/21/25 06:24 Labs: Laboratory Results - last 24 hr 07/20/25 07/20/25 07/20/25 16:44 16:54 17:12 MCV 87.8 MCH 28.0 MCHC 31.9 RDW 15.0 Plt Count 341 MPV 10.3 Immature Gran % (Auto) 0.4 Neut % (Auto) 67.8 Lymph % (Auto) 23.4 [place] % (Auto) 6.0 Eos % (Auto) 1.7 Baso % (Auto) 0.7 Lymph # (Auto) 1.9 [place] # (Auto) 0.5 Eos # (Auto) 0.1 Baso # (Auto) 0.1 Abs Immat Gran (auto) 0.03 Absolute Neuts (auto) 5.5 Absolute Nucleated RBC 0.000 Nucleated RBC % (auto) 0.0 Hold Purple Top SEE NOTE PT 10.8 L INR 0.9 APTT 27.3 Anion Gap 13 Estim Creat Clear Calc 94.7 Estimated GFR > 60 Random Glucose 101 Estimat Average Glucose Hemoglobin A1c % Calcium 9.3 Magnesium 2.2 Total Bilirubin 0.2 AST 27 ALT 22 Alkaline Phosphatase 116 Troponin I High Sens < 2.7 NT-Pro-B Natriuret Pep 259.7 Total Protein 8.0 Albumin 3.9 Triglycerides Cholesterol LDL Cholesterol, Calc HDL Cholesterol TSH 1.02 Urine Color Yellow Urine Appearance Clear Urine pH 6.0 Ur Specific [place] 1.010 Urine Protein Negative Urine Glucose (UA) Negative Urine Ketones Negative Urine Blood Negative Urine Nitrite Negative Ur Leukocyte Esterase Negative Urine Opiates Screen Ur Buprenorphine Scrn Ur Oxycodone Screen Urine Methadone Screen Urine Fentanyl Screen Ur Barbiturates Screen Ur Phencyclidine Scrn Ur Amphetamines Screen U Benzodiazepines Scrn Urine Cocaine Screen U Marijuana (THC) Screen Influenza Type A (PCR) Influenza Type B (PCR) RSV RNA Qual (PCR) SARS-CoV-2 RNA (RT-PCR) 07/20/25 07/20/25 07/21/25 22:38 23:26 06:24 MCV 89.5 MCH 27.9 MCHC 31.2 RDW 15.0 Plt Count 316 MPV 10.3 Immature Gran % (Auto) 0.3 Neut % (Auto) 59.4 Lymph % (Auto) 30.5 [place] % (Auto) 7.4 Eos % (Auto) 1.9 Baso % (Auto) 0.5 Lymph # (Auto) 2.2 [place] # (Auto) 0.5 Eos # (Auto) 0.1 Baso # (Auto) 0.0 Abs Immat Gran (auto) 0.02 Absolute Neuts (auto) 4.3 Absolute Nucleated RBC 0.000 Nucleated RBC % (auto) 0.0 Hold Purple Top PT INR APTT Anion Gap 11 L Estim Creat Clear Calc 105.0 Estimated GFR > 60 Random Glucose 88 Estimat Average Glucose 114 Hemoglobin A1c % 5.6 Calcium 8.5 D Magnesium Total Bilirubin 0.3 AST 24 ALT 17 Alkaline Phosphatase 99 Troponin I High Sens NT-Pro-B Natriuret Pep Total Protein 7.0 Albumin 3.4 L Triglycerides 153 H Cholesterol 185 LDL Cholesterol, Calc 111 H HDL Cholesterol 44 TSH Urine Color Urine Appearance Urine pH Ur Specific [place] Urine Protein Urine Glucose (UA) Urine Ketones Urine Blood Urine Nitrite Ur Leukocyte Esterase Urine Opiates Screen Not Detected Ur Buprenorphine Scrn Not Detected Ur Oxycodone Screen Not Detected Urine Methadone Screen Not Detected Urine Fentanyl Screen Not Detected Ur Barbiturates Screen Not Detected Ur Phencyclidine Scrn Not Detected Ur Amphetamines Screen Not Detected U Benzodiazepines Scrn Not Detected Urine Cocaine Screen Not Detected U Marijuana (THC) Screen Not Detected Influenza Type A (PCR) NEGATIVE Influenza Type B (PCR) NEGATIVE RSV RNA Qual (PCR) NEGATIVE SARS-CoV-2 RNA (RT-PCR) NEGATIVE Assessment and Plan (1) Acute left-sided weakness: Status: Acute Plan 65-year-old female with PMH notable for CAD, b/l knee prosthetic joint replacement , morbid obesity (BMI 44.4), HTN, chronic sinusitis, AUD, Current cigarette smoker was being admitted for acute on chronic worsening headaches with new onset agraphia and LUE weakness and being worked up for the same. acute on chronic worsening headaches with new onset agraphia and LUE weakness Neurology consulted Believe its likley complicated migraine Start Topiramate Stroke workup -ve MRI and MRV to be done PT/OT aspirin Statin AUD 2-3 scotch or hard ciders per day states her last drink was possibly Thursday07/17/2025 Alc level POA <10 CIWA Current nicotine usage (3/4 pack per week, will often smoke 5-6 cigarettes in a row) NRT ordered - pt refusing brother recently diagnosed with APLA Not genetic, likely OP mx Chronic backpain Duloxetine h/o thrush Nystatin SS Morbid obesity Diet counselling Nutrition consult .Code status: Full DVT px: Lovenox Dispo: need to workup for MRI/MRV and PT/OT clearance prior to DC This note is constructed using voice recognition software. While every effort has been made to ensure accuracy, paper gluing operator errors may have been included. Quality Stroke Does the patient have a stroke diagnosis?: No Reason for No Anti-thrombotic by Day Two: N/A - Med Ordered VTE Prior VTE?: No VTE Risk Level:: Medical - moderate - high VTE Device Contraindication: N/A - Device Ordered VTE Drug Contraindication: N/A - Med Ordered
--- NOTE | 2025-07-21 08:14 | PHA.MEDREC ---
Pharmacy Consult ? Medication Reconciliation Pharmacy has completed the medication reconciliation.
--- NOTE | 2025-07-21 08:14 | PC.NURSE ---
Patient can come off Telemetry for MRI per Dr. Arnold
[2025-07-21] MEDS: 0.9 % Sodium Chloride Flush 3 ML SYRINGE IVFLUSH ×2 (09:29→17:19)
[2025-07-21] MEDS: Nystatin Oral Susp 500,000 UNIT/5 ML ORAL.SUSP 400000 UNIT PO ×4 (09:31→20:18)
[2025-07-21] MEDS: iohexoL 350 MG/ML 100 ML INFUS..BTL IV (10:15)
--- NOTE | 2025-07-21 10:52 | PM.NEUROCN ---
History of Present Illness Data of Consult Service Date: 07/21/25 Primary Care Provider: Jenny Silva NP [facility] Reason for consult: Headache and left-sided weakness 65 years old left-handed woman with underlying moderate alcohol drinking, previous complaints of myalgias with no obvious findings to confirm and autoimmune disorder or myositis, headaches occurring about once a month that she would described them as sinus headaches, started having a headache about 2-3 weeks ago. There was no obvious associated cold or flu-like illness or any other illness. She was working on computer when she noted that she was having difficulty typing with the left hand. She also noted that the hand was clumsy. Worrying about stroke she came to hospital. Initial head CT did not reveal any acute abnormality. CTA was also done that I reviewed and did not find any obvious vascular lesion. She reported that her brother has been diagnosed with some kind of neurological syndrome causing brain it and involving anticardiolipin antibodies. This could not be independently confirmed. Review of Systems Constitutional: Constitutional: Reports as per HPI [facility] Past Medical History Medical History Obesity Tobacco use Dental abscess Chronic sinusitis Chronic back pain Hyperlipidemia Alcohol use disorder Arthritis Back pain Smoker Family History Family History Mother Stroke Hypertension Father History of heart attack Hypertension Maternal Aunt Thyroid disease Surgical History Surgical History History of total left knee replacement History of total right knee replacement Social History Social History Household Members: Significant Other Housing: House Do you presently have visiting nurse or other home services: No Alcohol intake: current Alcohol intake frequency: a few times a week Comment: Often Patient Tobacco Use Status: Current everyday Tobacco user Tobacco use type: Cigarette Cigarette Packs Per Day: 0.25 Cigarettes Per Day: 5.0 Smoked in Last 30 Days: Yes Patient Interested in Nicotine Replacement: No Second Hand Smoke Exposure: No Have you been hit, kicked, punched, or otherwise hurt by someone within the past year? If so, by whom?: No Do you feel safe in your current relationship?: Yes Is there a partner from a previous relationship who is making you feel unsafe now?: No Are you made to feel afraid or neglected: No Advance Directives: No Advance Directives Information Provided: No Do you have a plan to hurt others: No Plan Recently lost weight without trying: No Eating poorly because of decreased appetite: No Nutrition Risks: No Nutritional Risk Patient : No Meds Allergies Allergy/AdvReac Type Severity Reaction Status Date / Time Sulfa (Sulfonamide Allergy Unknown Verified 07/20/25 15:40 Antibiotics) LOBSTER AdvReac Severe VOMITING/DI Uncoded 07/20/25 15:40 ARRHEA Active Medications: Current Medications Acetaminophen (Acetaminophen 325 Mg Tablet) 975 mg PO Q6H [facility] Albuterol/Ipratropium (Albuterol/Iprat 2.5/0.5mg 3 Ml Ampul.Neb) 3 ml INHALE Q4H PRN PRN Reason: Shortness of Breath/Wheezing Calcium Carbonate (Calcium Carbonate 750 Mg Tab.Chew) 750 mg PO Q4H PRN PRN Reason: Heartburn Enoxaparin Sodium (Enoxaparin Sodium 40 Mg/0.4 Ml Syringe) 40 mg SUBCUT Q24H [facility] Last Admin: 07/20/25 21:48 Dose: 40 mg Folic Acid (Folic Acid 1 Mg Tablet) 1 mg PO DAILY [facility] Last Admin: 07/21/25 09:31 Dose: 1 mg Sodium Chloride (Ns) 1,000 mls @ 100 mls/hr IVCONT .Q10H [facility] Last Admin: 07/21/25 09:35 Dose: 100 mls/hr Ibuprofen (Ibuprofen 400 Mg Tablet) 400 mg PO Q6H [facility] Last Admin: 07/21/25 06:30 Dose: 400 mg Magnesium Hydroxide (Milk Of Magnesia 30 Ml Oral.Susp) 30 ml PO DAILY PRN PRN Reason: Constipation Melatonin (Melatonin 3 Mg Tablet) 6 mg PO BEDTIME PRN PRN Reason: Insomnia Nystatin (Nystatin Oral Susp 500,000 Unit/5 Ml Oral.Susp) 400,000 unit PO QID [facility]; Protocol Stop: 07/22/25 21:29 Last Admin: 07/21/25 09:31 Dose: 400,000 unit Ondansetron HCl (Ondansetron Hcl 4 Mg/2 Ml Vial) 4 mg IVPUSH Q8H PRN PRN Reason: Nausea and Vomiting Polyethylene Glycol (Polyethylene Glycol 3350 17 Gm Powd.Pack) 17 gm PO DAILY PRN PRN Reason: Constipation Senna (Sennosides 8.6 Mg Tablet) 17.2 mg PO BEDTIME [facility] Last Admin: 07/20/25 22:03 Dose: Not Given Sodium Chloride (0.9 % Sodium Chloride Flush 3 Ml Syringe) 3 ml IVFLUSH QSHIFT [facility] Last Admin: 07/21/25 09:29 Dose: 3 ml Thiamine HCl (Thiamine Hcl 100 Mg Tablet) 100 mg PO DAILY [facility] Last Admin: 07/21/25 09:31 Dose: 100 mg Home Medications ?Medication ?Instructions ?Recorded ?Confirmed ?Last Taken ?Type cyanocobalamin (vitamin B-12) 1,000 mcg PO DAILY 07/21/25 07/21/25 Unknown History 1,000 mcg tablet multivitamin 1 tab PO DAILY 07/21/25 07/21/25 Unknown History Physical Exam Vital Signs: Vital Signs: Last Vital Signs Temp 97.9 F 07/21/25 07:02 Pulse 70 07/21/25 07:02 Resp 18 07/21/25 07:02 BP 135/83 07/21/25 07:02 Pulse Ox 99 07/21/25 07:02 O2 Del Method Room Air 07/21/25 07:02 BMI result Body Mass Index 44.4 Neuro: Other: Mental Status: Alert and oriented to person, place, and time. Normal attention. Normal spontaneous speech, fluency, and comprehension. No obvious issues with mood and memory. Affect is appropriate. Cranial Nerves: CN II: Visual greene full to confrontation, visual acuity intact. CN III, IV, : Pupils equal, round, reactive to light and accommodation. Extraocular movements are normal. CN V: Facial sensation is normal. CN VII: Facial movements symmetrical. CN VIII: Hearing intact to bedside conversation is normal. CN IX, X: Palate elevates symmetrically. CN XI: Shoulder shrug and head turn symmetrical. CN XII: Tongue midline without atrophy or fasciculations. Motor: Bulk and tone normal in all extremities. No significant muscle weakness in arms and legs. No drift. Reflexes: Deep tendon reflexes 2+ and symmetric. Plantar response down-going bilaterally. Coordination: [id number] is okay. Extrapyramidal: Full facial expressions and blinking. No rigidity. Movements are appropriate with no tremor or abnormality. Speech: Normal; no dysarthria or tremor. Results Labs 07/21/25 06:24 07/21/25 06:24 Labs: Short CBC 07/20/25 07/21/25 Range/Units 16:44 06:24 WBC 8.0 7.3 (4.8-10.8) X10*3/uL Hgb 15.6 13.6 (12.0-16.0) g/dl Hct 48.9 H 43.6 (37.0-47.0) % Plt Count 341 316 (160-400) X10*3/uL BMP 07/20/25 07/21/25 17:12 06:24 Sodium 141 139 Potassium 4.3 4.1 Chloride 110 H 112 H Carbon Dioxide 22 20 L BUN 15 9 Creatinine 0.82 0.74 Calcium 9.3 8.5 D Liver Function 07/20/25 07/21/25 Range/Units 17:12 06:24 Total Bilirubin 0.2 0.3 (0.0-1.0) mg/dL AST 27 24 (5-31) U/L ALT 22 17 (0-31) U/L Alkaline Phosphatase 116 99 (39-117) U/L Albumin 3.9 3.4 L (3.5-5.0) g/dL Urine 07/20/25 Range/Units 16:54 Urine Color Yellow Urine Appearance Clear Urine pH 6.0 (5.0-9.0) Ur Specific [place] 1.010 (1.005-1.025) Urine Protein Negative (Neg-Trace) mg/dL Urine Glucose (UA) Negative (Negative) mg/dL CT head without contrast Comparison: None provided Findings: No intra-axial mass, midline shift, hydrocephalus, or acute hemorrhage. No significant atrophy-like change or white matter disease. There is no sinus or mastoid fluid. The orbits are within normal limits. There is no acute fracture. IMPRESSION: 1. No acute intracranial findings. Assessment and Plan (1) Left-sided weakness: Status: Acute 65 years old woman who probably has migraine headaches, which she has been calling sinus headaches. She started having a headache few days ago and then developed left-sided symptoms, which might have been cause by complication of migraine. As she never had this kind of symptoms before or the severity of head it was reason will to rule out focal lesion or stroke. Her head CT has not revealed any acute abnormality or significant chronic abnormality to suggest a stroke. It revealed mild cortical atrophy. CTA of brain and neck to my review did not reveal any vascular lesion. Likely etiology of her symptom is complicated migraine. Because of new onset of this type of symptoms and her family history, it is reasonable to obtain a noncontrast MRI of brain and MRV to rule out any venous sinus disease. Otherwise, my recommendation is to treat with topiramate 25 mg twice a day for headache control. Aside from that, if she was still doing it, she should stopped drinking alcohol. I already see mild cortical atrophy which is a known complication of alcohol drinking resulting in cognitive and behavioral problems. (2) Head ache: Qualifiers: Headache type: unspecified Headache chronicity pattern: acute headache Intractability: not intractable Qualified Code(s): R51.9 - Headache, unspecified Status: Acute Procedures Date of Service Date of Service: 07/21/25
--- NOTE | 2025-07-21 11:21 | PC.NURSE ---
patient refused sequentials,risks explained,encouraged activity
--- NOTE | 2025-07-21 14:01 | MHC.CM.PN ---
Pt. lives with her , PCP confirmed: Jenny Silva NP. HCP on file naming Demetrius and Amarjit. Pt. does not use home health care services or DME. Spouse to transport home at DC, DCP: home, self care, CM to follow for DC needs.
[2025-07-22 01:01] LABS: Cannabinoid Screen Urine Not Detected (Not Detect)
[2025-07-22 03:07] VITALS: BP 129/65; PULSE 72; RESP 16; TEMP 36.4; O2SAT 98
[2025-07-22 08:00] VITALS: BP 121/75; PULSE 70; RESP 20; TEMP 36.1; O2SAT 97
[2025-07-22] MEDS: Nystatin Oral Susp 500,000 UNIT/5 ML ORAL.SUSP 400000 UNIT PO (08:40)
[2025-07-22 12:00] VITALS: BP 107/53; PULSE 75; RESP 20; TEMP 36.2; O2SAT 100
--- NOTE | 2025-07-22 12:04 | PM.DS ---
DS: Providers Provider Date of admission: 07/20/25 19:59 Date of discharge: 07/22/25 Primary care physician: Jenny Silva NP Consults: 07/20/25 21:21 Consult to Neurology Routine Consulting Provider: [facility] Reason for consultation: Left-sided weakness, rule out CVA Has provider been notified: No DS: Diagnosis Discharge Diagnosis (1) Acute left-sided weakness: Status: Acute DS: Summary Hospital Course Hospital Course: Per H&P: Chief Complaint: left sided weakness Patient is a 65-year-old female with past medical history hyperlipidemia no longer on statin due to side effects, chronic back pain, white coat hypertension, bilateral knee osteoarthritis with bilateral knee total replacements, chronic sinusitis, recent loss of her dental bridge 07/15, negative for rheumatological workup, alcohol use disorder without history of withdrawal symptoms or seizure (2-3 scotch or hard ciders per day), tobacco use disorder (3/4 pack per week, will often smoke 5-6 cigarettes in a row) was BIBA with multiple complaints including dizziness, LUE weakness, and a very persistent headache that became worse over the past weekend. Patient states she also lost a bridge in the upper right gum area on ThursdayJuly 15 spontaneously. Patient had plans to get the bridge repaired but was not feeling well enough to make the dental appointment. 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 Patient was experiencing baseline confusion, and incoordination, left-sided weakness and patient was not able to type on a keyboard or use a brush to comb her hair or get dressed independently. Patient denied any issues initially with speech but then her speech became more garbled and slowed. Patient waited to be seen because she thought she may have had the flu and her symptoms would improve. Patient states her last drink was possibly Thursday07/17/2025. Patient does state she normally drinks 2-3 drinks per day daily, lately more hard cider than scotch. Patient denies any falls or trauma. Patient has not recently traveled or been around anybody with illness. Patient currently denies any chest pain or shortness of breath at rest. Patient is not having any dental/oral pain, abdominal pain, nausea or vomiting. Patient denies chills, fever, night sweats or spine or neck pain. Workup in the ED included CT of the head which was negative for any acute findings. CTA of the head and neck was not ordered. MRI is planned for the a.m.. Urine drug screen pending. UA negative for UTI. Labs indicate no leukocytosis or significant anemia. Chloride 110 but otherwise chemistries negative for any abnormal findings. TSH 1.02. EKG normal sinus rhythm with QTC of 476, no ischemic changes. Troponin negative. Patient being admitted for left-sided weakness and to rule out CVA or other underlying neurological issue. Patient does use alcohol every day to be at risk for alcohol withdrawal. Patient does have a case of thrush as well. Hospital course: The patient is a 65 year old female with a history of CAD, hypertension, morbid obesity, chronic sinusitis, alcohol use disorder, and tobacco use who presented with acute on chronic worsening headaches associated with new onset agraphia and left upper extremity weakness. Given concern for acute cerebrovascular event, she underwent a comprehensive stroke evaluation. Neurology was consulted. Initial stroke workup was negative. Clinical presentation was felt to be most consistent with a likely complicated migraine. She was started on topiramate with improvement in symptoms. MRI brain and MRV were planned/performed as part of the evaluation, the read of which is still pending at the time of discharge. Given that the read could take upto Thursday given holiday weekend, patient verbalizes that she would rather go home and wait it out and sleep in her own bed than be here. She is aware that she should follow up with her PCP, Neurologist , dermatology physician in OP setting. If the reports from MRI Brain and MRV were abnormal, she is to come back to the ED.Patient verbalizes the agreement. She was evaluated by PT/OT and cleared for discharge. She remained hemodynamically stable throughout hospitalization without progression of neurologic deficits, and resolution of symptoms. Full code DVT px: Lovenox This note is constructed using voice recognition software. While every effort has been made to ensure accuracy, costuming supervisor errors may have been included. Time spent discussing smoking cessation with patient: more than 10 minutes Status at Discharge Functional status at discharge: independent ambulation Overall status at discharge: patient is progressing back to baseline Time Attestation Discharge Coordination Time (in mins): 65 Quality: Safe Use of Opioids Does Pt have an Active Cancer Diagnosis on the Problem List?: No Quality: Stroke Does the patient have a stroke diagnosis?: No Physical Exam Exam: Exam: General: AOx3, no acute distress, morbid obesity Resp: CTA bilaterally CVS: S1, S2, RRR GI: +BS, NT, no distention Neuro: Grossly normal, reports some mild L eye lateral diplopia Vital Signs: Vital Signs: Last Vital Signs Temp 97.0 F 07/22/25 08:00 Pulse 70 07/22/25 08:00 Resp 20 07/22/25 08:00 BP 121/75 07/22/25 08:00 Pulse Ox 97 07/22/25 08:00 O2 Del Method Room Air 07/22/25 08:00 BMI result Body Mass Index 44.4 DS: Data Data Completed and Pending Labs on day of discharge: Laboratory Results - last 24 hr 07/22/25 00:45 Urine Opiates Screen Not Detected Ur Buprenorphine Scrn Not Detected Ur Oxycodone Screen Not Detected Urine Methadone Screen Not Detected Urine Fentanyl Screen Not Detected Ur Barbiturates Screen Not Detected Ur Phencyclidine Scrn Not Detected Ur Amphetamines Screen Not Detected U Benzodiazepines Scrn Not Detected Urine Cocaine Screen Not Detected U Marijuana (THC) Screen Not Detected Discharge Plan Discharge Anticipated Discharge Date/Time: 07/22/25 12:11 Patient Disposition: Home, Self-Care Discharge Diagnosis: complicated migraine Referrals: Naomi Aguilera MD [Physician, Rheumatology] - 1 Week Jono Leslie MD [Physician, Neurology] - 1 Week Jenny Silva NP [Primary Care Provider, Internal Medicine] - 1 Week Discharge Medications: New topiramate 25 mg Tablet 25 mg PO BID 30 Days Qty: 60 3RF Continued multivitamin Tablet 1 tab PO DAILY cyanocobalamin (vitamin B-12) 1,000 mcg Tablet 1,000 mcg PO DAILY Discharge Orders: Discharge Order (Routine); Ordered 07/22/25 Ordered By: Brandee Arnold Diet: Advance to usual diet Activity on Discharge: As tolerated Stand Alone Forms: Patient Portal Discharge page Print Language: [place] Care Plan Goals: Discharge Instructions: Complicated Migraine Diagnosis Your symptoms were most consistent with a complicated migraine, which can cause headache along with temporary neurologic symptoms such as weakness, speech or writing difficulty, or numbness. Your stroke evaluation was reassuring. Medications - Take topiramate exactly as prescribed - Continue your aspirin, statin, and other home medications - Do not stop medications without medical advice What to Expect - Neurologic symptoms from complicated migraine are usually temporary - Headaches may improve gradually with preventive medication Activity - Resume activities as tolerated - Avoid driving or hazardous activities if you feel weak, dizzy, or confused - Rest in a quiet, dark environment during headaches Migraine Trigger Avoidance - Maintain regular sleep and meals - Stay well hydrated - Avoid excess alcohol - Avoid cigarette smoking - Limit stress when possible When to Seek Immediate Medical Care Go to the emergency department or call 911 if you develop: - New or worsening weakness, numbness, or facial droop - Trouble speaking, understanding speech, or vision loss - Severe headache different from prior migraines - Loss of consciousness or confusion FollowUp - Follow up with Neurology as scheduled - Follow up with your Primary Care Physician within 1?2 weeks Reason for Follow Up You reported a family history of antiphospholipid antibody syndrome (APS). APS is an autoimmune condition associated with blood clots and related complications. It is not inherited directly, but family history may prompt further evaluation. No urgent inpatient testing was required during this hospitalization. Outpatient Plan Follow up with Rheumatology as an outpatient for further evaluation Rheumatology may decide whether blood testing is appropriate based on your history and risk factors Testing, if pursued, is typically done outside of acute illness and may require repeat labs over time Medications Continue current medications as prescribed Do not start or stop blood thinners unless instructed When to Seek Medical Care Seek urgent medical attention if you develop: Sudden leg swelling or pain Chest pain or shortness of breath New neurologic symptoms such as weakness, numbness, or speech difficulty Follow Up Appointments Rheumatology: outpatient referral placed / to be scheduled Health Concerns: See above Plan of Treatment: See above Assessment: See above
--- NOTE | 2025-07-22 12:40 | MHC.CM.PN ---
Patient discharged today home self care. She has arranged for her spouse to provide transportation home.
[2025-07-26 12:48] LABS: Alcohol, Ethyl Urine Screen NEGATIVE
== END 2025-07-22 13:57 | disposition home or self-care (01) | DRG 54 ==
LOC: HO.ED 17:22 → HO.EDOVER 20:13 → HO.IMC 07-21 00:11
PROVIDERS: Admitting Provider Nurse Practitioner Family; Emergency Provider Emergency Medicine; PCP Nurse Practitioner Adult Health; Visit Provider Student in an Organized Health Care Education/Training Program
DX: G43.109 Migraine with aura, not intractable, without status migrainosus (principal); B37.0 Candidal stomatitis; F17.210 Nicotine dependence, cigarettes, uncomplicated; E66.01 Morbid (severe) obesity due to excess calories; F10.90 Alcohol use, unspecified, uncomplicated; G83.24 Monoplegia of upper limb affecting left nondominant side; Z68.41 Body mass index [BMI] 40.0-44.9, adult; M54.9 Dorsalgia, unspecified; G89.29 Other chronic pain; Z20.822 Contact with and (suspected) exposure to COVID-19; Z71.6 Tobacco abuse counseling; Z79.82 Long term (current) use of aspirin; Z79.899 Other long term (current) drug therapy
CPT/HCPCS: 36415; 70450; 70496; 70498; 70546; 70551; 80053; 80061; 80307; 81003; 83036; 83735; 83880; 84443; 84484; 85025; 85610; 85730; 87637; 93005; 97162; 97165; 99285; A9585; J1650; J1885; Q9967

== ENCOUNTER → 2025-07-20 16:26 | Outpatient (BNV) | payer OTHER, SELFPAY | PROVIDERS: Admitting Provider Nurse Practitioner Family; Emergency Provider Emergency Medicine; PCP Nurse Practitioner Adult Health; Visit Provider Internal Medicine Cardiovascular Disease | DX: R42 Dizziness and giddiness (principal) | CPT/HCPCS: 93010 ==

== ENCOUNTER → 2025-07-20 16:57 | Outpatient (BNV) | payer OTHER, SELFPAY | PROVIDERS: Emergency Provider Emergency Medicine; PCP Nurse Practitioner Adult Health; Visit Provider Radiology Diagnostic Radiology | DX: G93.40 Encephalopathy, unspecified (principal) | CPT/HCPCS: 70450 ==

== ENCOUNTER 2025-07-20 19:59 | Outpatient (BNV) | payer OTHER, SELFPAY | END 2025-07-21 09:52 | PROVIDERS: Admitting Provider Nurse Practitioner Family; Emergency Provider Emergency Medicine; PCP Nurse Practitioner Adult Health; Visit Provider Radiology Diagnostic Radiology | DX: I63.9 Cerebral infarction, unspecified (principal) | CPT/HCPCS: 70496; 70498; 70546; 70551 ==

== ENCOUNTER → 2025-07-20 19:59 | Outpatient (BNV) | payer OTHER, SELFPAY | PROVIDERS: Admitting Provider Nurse Practitioner Family; Emergency Provider Emergency Medicine; PCP Nurse Practitioner Adult Health; Visit Provider Psychiatry & Neurology Neurology | DX: R53.1 Weakness (principal); R51.9 Headache, unspecified | CPT/HCPCS: 99223 ==

== ENCOUNTER → 2025-07-20 19:59 | Outpatient (BNV) | payer OTHER, SELFPAY | PROVIDERS: Admitting Provider Nurse Practitioner Family; Emergency Provider Emergency Medicine; PCP Nurse Practitioner Adult Health; Visit Provider Nurse Practitioner Family | DX: R53.1 Weakness (principal); F10.90 Alcohol use, unspecified, uncomplicated; B37.0 Candidal stomatitis | CPT/HCPCS: 99223; 99233 ==